=== PATIENT | female | born 1995 | race Caucasian/White ===

== ENCOUNTER 2017-05-11 07:05 | Inpatient (IN) | payer OTHER ==
[~2017-05-11] VITALS: Ht 172.7 cm; Wt 59.0 kg
[2017-05-11] MEDS ORDERED: MORPHINE SULFATE 4 MG/ML DISP.SYRIN. ONE (07:20)
[2017-05-11 07:28] LABS: BASO # 0.1 x10^3/uL (0.0-0.2); BASO % 1 % (0-3); EOS % 1 % (0-3); HEMATOCRIT 42.1 % (36.0-47.0); HEMOGLOBIN 13.9 g/dL (12.0-15.5); LYMPH # 1.1 x10^3/uL (1.0-4.8); LYMPH % 10 % (24-48); MEAN CORPUSCULAR HEMOGLOBIN 31 pg (25-35); MEAN CORPUSCULAR HGB CONC 33 g/dL (31-37); MEAN CORPUSCULAR VOLUME 92 fL (79-100); MONO % 5 % (0-9); NEUT % 85 % (31-73); PLATELET COUNT 195 x10^3/uL (140-400); RED BLOOD COUNT 4.57 x10^6/uL (3.50-5.40); RED CELL DISTRIBUTION WIDTH 13.1 % (11.5-14.5); WHITE BLOOD COUNT 11.1 x10^3/uL (4.0-11.0)
[2017-05-11] MEDS ORDERED: ONDANSETRON PF 4 MG/2 ML VIAL. IV ONE (07:30)
[2017-05-11] MEDS: MORPHINE SULFATE 4 MG/ML DISP.SYRIN. IV/SQ PRN ×4 (07:30→09:34)
[2017-05-11] MEDS ORDERED: IV NORMAL SALINE 1000ML BAG 1,000 ML IV ONE (07:30)
[2017-05-11] MEDS ORDERED: IOHEXOL 300 MG/ML 75 ML VIAL IV ONE (07:30)
[2017-05-11] MEDS ORDERED: CONTRAST GIVEN MC PRN (07:45)
[2017-05-11 07:48] LABS: NEG OBC SER NEG; POS OBC SER POS
[2017-05-11 08:03] LABS: CALCIUM 8.4 mg/dL (8.5-10.1); CREATININE 0.8 mg/dL (0.6-1.0); GFR 90.5; POTASSIUM 3.4 mmol/L (3.5-5.1)
[2017-05-11 08:10] LABS: ALBUMIN 4.1 g/dL (3.4-5.0); ALBUMIN/GLOBULIN RATIO 1.1 (1.0-1.7); TOTAL BILIRUBIN 0.3 mg/dL (0.2-1.0); TOTAL PROTEIN 7.8 g/dL (6.4-8.2)
--- NOTE | 2017-05-11 08:40 | RAD ---
CT scan of the abdomen and pelvis with contrast 05/11/2017 Clinical history: Acute abdominal pain since last night with nausea and vomiting. Technique: After the intravenous administration of 35 cc of Omnipaque 300, contiguous, 5 mm axial sections were obtained through the abdomen and pelvis. One or more of the following individualized dose reduction techniques were utilized for this study: 1. Automated exposure control. 2. Adjustment of the mA and/or kV according to patient size. 3. Use of iterative reconstruction technique. Findings: No previous imaging studies are available for comparison. Images through the lung bases are within normal limits. Images through the the liver demonstrate periportal edema which is a nonspecific finding. It could be seen with hepatitis. A small amount of pericholecystic fluid is seen surrounding the gallbladder which is contracted. Questionable calcified gallstones are seen within the dependent portions of the gallbladder on the coronal reconstructed images. The liver is mildly enlarged measuring 20 cm in length. The spleen, pancreas, adrenal glands and kidneys are within normal limits. The abdominal aorta tapers normally. No free air is seen within the abdomen. There is no evidence of bowel obstruction. The appendix is partially visualized and is within normal limits. Images through the pelvis demonstrate the urinary bladder distended with urine. No adnexal mass is seen. No free fluid is noted. Minimal S shaped curvature of the thoracolumbar spine is noted. Impression: 1. Periportal edema is seen throughout the liver. This is a nonspecific finding. It can be seen in hepatitis. Clinical correlation is recommended. 2. Question cholelithiasis. A small amount of pericholecystic fluid is seen. This is a nonspecific finding. This can be seen with cholecystitis. Clinical correlation is recommended.
--- NOTE | 2017-05-11 10:38 | RAD ---
Ultrasound of the right upper quadrant of the abdomen 05/11/2017 Clinical history: Epigastric pain since this morning with nausea and vomiting. Technique: A real-time ultrasound examination of the right upper quadrant of the abdomen was performed. Multiple images were obtained. Findings: Comparison is made to the patient's CT scan of the abdomen performed earlier today. Findings: The gallbladder is slightly contracted. No gallstones are visualized. The contracted nature of the gallbladder makes evaluation of the gallbladder wall thickness difficult. The pericholecystic fluid is better seen on the patient's CT scan. The liver is normal in size measuring 16.3 cm in length. No focal abnormality of the liver is seen. The pancreas and right kidney are within normal limits. Impression: The gallbladder is contracted. No gallstones are visualized.
--- NOTE | 2017-05-11 11:20 | PHYS DOC ---
Past Medical History Past Medical History: Other Additional Past Medical Histor: SVT Alcohol Use: None Drug Use: None Adult General Chief Complaint Chief Complaint: ABDOMINAL PAIN HPI HPI Patient is a 21 year old female who presents to the ED with severe abdominal pain that began about 2 AM and has been worsening. Patient has never had pain like this before. This is the most severe pain she's ever had. She has had some nausea and vomiting with it and also had "a lot" of diarrhea. Patient is currently having her menstrual period. Patient states she was seen a week ago Friday in an ER in [place] with pelvic pain and had an ultrasound and was diagnosed with a ruptured ovarian cyst but she's been okay all week since that happened. She has been taking pain pills occasionally since then. This pain is "way worse" than that pain was, and also this pain is in her upper abdomen. Patient was fine during the day yesterday. 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 They spent the [facility] and her headed home to [place]. They're passing through the area as they travel. Patient takes control pills. She has a history of SVT. She did not have ablation for that. She has had ovarian cysts. She has not had abdominal surgery. Review of Systems Review of Systems Constitutional: Denies fever or chills [] HENT: Denies nasal congestion or sore throat [] Respiratory: Denies cough or shortness of breath [] Cardiovascular: Denies chest pain GI: As in history of present illness : As in history of present illness Musculoskeletal: Denies back pain or joint pain [] Integument: Denies rash or skin lesions [] Neurologic: Denies headache, focal weakness or sensory changes [] Current Medications Current Medications Current Medications Medications (Trade) Dose Ordered Sig/Sharon Start Time Stop Time Status Last Admin Dose Admin Info (Do NOT chart on this entry -- for MONITORING) 1 each PRN DAILY PRN 05/11/17 07:45 05/13/17 07:44 Iohexol (Omnipaque 300 Mg/ml) 75 ml 1X ONCE 05/11/17 07:30 05/11/17 07:35 DC 05/11/17 07:55 75 ML Morphine Sulfate 2 mg PRN Q2HR PRN 05/11/17 13:00 05/12/17 12:59 Ondansetron HCl (Zofran) 4 mg PRN Q8HRS PRN 05/11/17 13:00 05/12/17 12:59 Sodium Chloride 1,000 ml @ 100 mls/hr Q10H 05/11/17 12:49 05/12/17 12:48 Allergies Allergies Allergies Coded Allergies Type Severity Reaction Last Updated Verified No Known Drug Allergies 05/11/17 No Physical Exam Physical Exam Constitutional: Well developed, well nourished, alert, mentating normally, in acute distress, seems colicky, writhing, can't get comfortable, warm and dry. HENT: Normocephalic, atraumatic, bilateral external ears normal, nose normal. [ ] Eyes: conjunctiva normal, no discharge. [] Neck: Normal range of motion, no stridor. [] Cardiovascular:Heart rate regular rhythm, no murmur [] Lungs & Thorax: Bilateral breath sounds clear to auscultation [] Abdomen: Bowel sounds quiet. Abdomen nondistended. No mass, no pulsatile mass. Lower abdomen is mildly tender to palpation, upper abdomen is moderately tender to palpation. No guarding or rebound. No definitely localized tenderness. Skin: Warm, dry, no erythema, no rash. [] Extremities: No tenderness, no cyanosis, no clubbing, ROM intact, no edema. [] Neurologic: Alert and oriented X 3, normal motor function, normal sensory function, no focal deficits noted. [] Current Patient Data Vital Signs Vital Signs Date Time Temp Pulse Resp B/P (MAP) Pulse Ox O2 Delivery O2 Flow Rate FiO2 05/11/17 11:41 52 24 103/58 (73) 97 Room Air 05/11/17 07:10 97.8 97.8 Lab Values Laboratory Tests Test 05/11/17 07:20 White Blood Count 11.1 x10^3/uL (4.0-11.0) H Red Blood Count 4.57 x10^6/uL (3.50-5.40) Hemoglobin 13.9 g/dL (12.0-15.5) Hematocrit 42.1 % (36.0-47.0) Mean Corpuscular Volume 92 fL (79-100) Mean Corpuscular Hemoglobin 31 pg (25-35) Mean Corpuscular Hemoglobin Concent 33 g/dL (31-37) Red Cell Distribution Width 13.1 % (11.5-14.5) Platelet Count 195 x10^3/uL (140-400) Neutrophils (%) (Auto) 85 % (31-73) H Lymphocytes (%) (Auto) 10 % (24-48) L Monocytes (%) (Auto) 5 % (0-9) Eosinophils (%) (Auto) 1 % (0-3) Basophils (%) (Auto) 1 % (0-3) Neutrophils # (Auto) 9.3 x10^3uL (1.8-7.7) H Lymphocytes # (Auto) 1.1 x10^3/uL (1.0-4.8) Monocytes # (Auto) 0.5 x10^3/uL (0.0-1.1) Eosinophils # (Auto) 0.1 x10^3/uL (0.0-0.7) Basophils # (Auto) 0.1 x10^3/uL (0.0-0.2) Sodium Level 139 mmol/L (136-145) Potassium Level 3.4 mmol/L (3.5-5.1) L Chloride Level 105 mmol/L (98-107) Carbon Dioxide Level 25 mmol/L (21-32) Anion Gap 9 (6-14) Blood Urea Nitrogen 10 mg/dL (7-20) Creatinine 0.8 mg/dL (0.6-1.0) Estimated GFR (Cockcroft-Gault) 90.5 BUN/Creatinine Ratio 13 (6-20) Glucose Level 114 mg/dL (70-99) H Calcium Level 8.4 mg/dL (8.5-10.1) L Total Bilirubin 0.3 mg/dL (0.2-1.0) Aspartate Amino Transferase (AST) 26 U/L (15-37) Alanine Aminotransferase (ALT) 20 U/L (14-59) Alkaline Phosphatase 55 U/L (46-116) Total Protein 7.8 g/dL (6.4-8.2) Albumin 4.1 g/dL (3.4-5.0) Albumin/Globulin Ratio 1.1 (1.0-1.7) Lipase 100 U/L (73-393) Serum Test, Qualitative Negative (NEG) Laboratory Tests 05/11/17 07:20 Laboratory Tests 05/11/17 07:20 EKG EKG [] Radiology/Procedures Radiology/Procedures CT scan of the abdomen and pelvis with IV contrast read by the radiologist.. Periportal edema which is a nonspecific finding. Question pericholecystic fluid and questionable gallstones. I discussed the CT scan with Dr. Pleitez. There is no evidence of free air, no evidence of vascular emergency including negative portal or SMV thrombosis, negative volvulus. Right upper quadrant ultrasound read by the radiologist. Essentially normal ultrasound. No gallstones. No significant abnormality of the gallbladder although it was noted to be contracted. Liver is normal in size on the ultrasound. No focal abnormality of the liver is seen on the ultrasound. [] Course & Med Decision Making Course & Med Decision Making Pertinent Labs and Imaging studies reviewed. (See chart for details) 21-year-old healthy female who is traveling from [place] to [place] and passing through the area presents with acute onset of severe abdominal pain at 2 AM that became increasingly more severe. I discussed with the patient that we will treat her pain and do some diagnostic testing, she is agreeable to that plan. Patient was given IV morphine and Zofran and did get eventual relief of her abdominal pain. Labs unremarkable, unrevealing for cause of pain, test negative. Liver enzymes, alkaline phosphatase, bilirubin are normal. I discussed the case with Dr. Pleitez, radiologist. We discussed the patient's presentation and my concerns about the fact that her abdominal pain was relatively acute and severe. He reviewed her films again. He does not see any evidence of thromboembolic or other vascular problem, specifically does not see portal for SMV thrombosis or volvulus, he did note on CT scan the presence of nonspecific periportal edema, differential diagnosis for this does not seem to apply to this patient and this would not be the cause of acute severe pain from my understanding. There was an initial question of biliary colic/gallstones on CT scan but ultrasound did not demonstrate gallstones. He believes that might have been an artifact on the CT scan. I revisited the patient who states she is feeling a lot better after morphine. She remains alert. She is no longer vomiting. She does appear much more comfortable. I discussed the results of her testing. Although we have not identified the cause of her pain, we have ruled out many serious causes and are not finding anything to suggest an imminently surgical or emergency abnormality at this time. We discussed disposition. I offered the patient admission for observation. I told her we could certainly keep her in the hospital for IV fluids and keep an eye on her, if the situation were to change she could have reexam, repeat labs, etc. as indicated. The patient plans to drive back home to [place] today, she is not herself doing the driving. She did rather go ahead and leave and get back home and I do believe that is safe since she has had a thorough evaluation here in the ED. We agreed that she will try a by mouth challenge and a trial of ambulation prior to making a final decision. Patient ate some crackers and had a trial of ambulation and stated that her pain was better and does wish to be discharged. The patient was requesting an additional shot of morphine prior to discharge but I am very reluctant to do that. I told her if she is still having significant pain, I don't want to discharge her to drive from here to [place]. If she's not having much pain, she doesn't need any more morphine. I feel like she is stable for discharge based on all the negative tests but I don't feel like I should discharge her with pain requiring IV opiates. We discussed this. I had gotten the patient's discharge paperwork ready when ED RN told me that the patient's mom was on the phone. I returned to the patient's room and talked to the patient's mom at length on the patient's phone. During our conversation, the patient began to curl her legs up and cry again, stating her pain was coming back. The patient's mom and the patient both are asking for a dose of morphine prior to discharge "to get her down the road a few hours" and I am refusing to do that. If she is still having abdominal pain significant enough to require IV opiates, she does not need to be discharged from the hospital to drive from here to [place]. I tried to make my reasoning for that clear. The patient will be admitted for observation and further evaluation as she is requiring IV opiates for her abdominal pain of undetermined etiology. I discussed the case with Dr. Carter, hospitalist, who will admit the patient. I wrote bridge orders. [] Dragon Disclaimer Dragon Disclaimer This electronic medical record was generated, in whole or in part, using a voice recognition dictation system. Departure Departure Impression: Primary Impression: Abdominal pain of unknown etiology Disposition: ADMITTED INPATIENT Admitting Physician: Gianni Marmolejo Condition: STABLE Referrals: NO PCP (PCP) Additional Instructions: As we discussed, lab tests, ultrasound, CT scan did not show the cause of your pain today. What that means is that we did not find the cause and that we evaluated for many serious causes and did not find them. You may need more testing. If the pain returns see your doctor right away for further evaluation. TON HATCH MD May 11, 2017 11:20
[2017-05-11] MEDS: IV NORMAL SALINE 1000ML BAG 1,000 ML IV SCH ×2 (12:49→17:03)
[2017-05-11] MEDS ORDERED: ONDANSETRON PF 4 MG/2 ML VIAL. IV PRN (13:00)
[2017-05-11] MEDS ORDERED: MORPHINE SULFATE 2 MG/ML DISP.SYRIN. IV PRN (13:00)
[2017-05-11 14:56] VITALS: BP 110/69
[2017-05-11] MEDS ORDERED: oxyCODONE/APAP 5/325 1 TAB TABLET PO PRN (16:00)
--- NOTE | 2017-05-11 16:24 | PDOC1 ---
History and Physical Date of Admission Date of Admission DATE: 05/11/17 TIME: 16:18 Identification/Chief Complaint Chief Complaint abd pain Problems: Source Source: Caregiver, Chart review, Patient History of Present Illness History of Present Illness 21 y.o female, NON obese, visiting from [facility], she spent the whole summer in [place] and is now driving back to [place], an attack of abd pain, epigastric and maybe radiated to the RUQ area, needed to stop driving and come here, SOme nausea maybe emesis? no fevers, no diarrhea reported to me,CT scan showed fatty liver (denies heavy etoh) and pericholic cystic fluid, but no GB stones, ff up US failed to show any GB stones, WBC 11 , no UA yet, Pt was about to be sent home, when after eating crackers and some liquid diet felt the pain again, curled up, She was then admitted K 3.4, prefers to lay down as that is the most comfortable position, Morphine helps but not permanently NO hx hepatitis, LFTs normal. She could not say ifpain is precipitated by food COntracted GB on imaging Past Medical History Cardiovascular: No pertinent hx Pulmonary: No pertinent hx GI: No pertinent hx Heme/Onc: No pertinent hx Hepatobiliary: No pertinent hx Psych: No pertinent hx Rheumatologic: No pertinent hx Infectious disease: No pertinent hx ENT: No pertinent hx Renal/: No pertinent hx Endocrine: No pertinent hx Dermatology: No pertinent hx Past Surgical History Past Surgical History: No pertinent history Family History Family History: Hypertension Social History Smoke: No ALCOHOL: none Drugs: None Current Problem List Problem List Problems Medical Problems: (1) Abdominal pain of unknown etiology Status: Acute Problems: Current Medications Current Medications Current Medications Morphine Sulfate 4 mg PRN Q15MIN PRN IV/SQ PAIN GREATER THAN 3/10 Last administered on 05/11/17 09:34; Start 05/11/17 at 07:30; Stop 05/11/17 at 15:49 ; Status DC Ondansetron HCl (Zofran) 4 mg 1X ONCE IV Last administered on 05/11/17 07:31 ; Start 05/11/17 at 07:30; Stop 05/11/17 at 07:31; Status DC Morphine Sulfate 4 mg STK-MED ONCE .ROUTE ; Start 05/11/17 at 07:20; Stop at 07:21; Status DC Sodium Chloride 1,000 ml @ 1,000 mls/hr 1X ONCE IV Last administered on 07:32; Start 05/11/17 at 07:30; Stop 05/11/17 at 08:29; Status DC Iohexol (Omnipaque 300 Mg/ml) 75 ml 1X ONCE IV Last administered on 05/11/17 07:55; Start 05/11/17 at 07:30; Stop 05/11/17 at 07:35; Status DC Info (Do NOT chart on this entry -- for MONITORING) 1 each PRN DAILY PRN MC SEE COMMENTS; Start 05/11/17 at 07:45; Stop 05/13/17 at 07:44 Ondansetron HCl (Zofran) 4 mg PRN Q8HRS PRN IV NAUSEA/VOMITING; Start 05/11/17 at 13:00; Stop 05/11/17 at 15:49; Status DC Morphine Sulfate 2 mg PRN Q2HR PRN IV PAIN; Start 05/11/17 at 13:00; Stop 05/12 at 12:59 Sodium Chloride 1,000 ml @ 100 mls/hr Q10H IV Last administered on 05/11/17 12:49; Start 05/11/17 at 12:49; Stop 05/12/17 at 12:48 Ondansetron HCl (Zofran) 4 mg PRN Q6HRS PRN IV NAUSEA/VOMITING; Start 05/11/17 at 15:48 Oxycodone/ Acetaminophen (Percocet 5/325) 1 tab PRN Q4HRS PRN PO PAIN; Start at 16:00 Potassium Chloride 100 ml @ 100 mls/hr Q1H IV ; Start 05/11/17 at 17:00; Stop 05/11/17 at 18:59 Allergies Allergies: Coded Allergies: No Known Drug Allergies (Unverified , 05/11/17) ROS Review of System s per HPI all eles, is neg Physical Exam General: Alert, Oriented X3, Cooperative, No acute distress HEENT: Atraumatic, PERRLA, EOMI, Mucous membr. moist/pink Lungs: Clear to auscultation, Normal air movement Heart: S1S2, RRR, no thrills, no rubs, no gallops Cardiovascular: S1, S2 Breasts: Normal, Rt breast nml w/o mass, Lt breast nml w/o mass, Nipples normal Abdomen: Soft, Other (tenderness mostly in epigatsric area, no rebound, no guarding) Rectal Exam: not examined PELVIC: Nml ext genitalia Extremities: No clubbing Skin: No rashes, No breakdown, No significant lesion Neuro: Normal gait, Normal speech, Strength at 5/5 X4 ext, Normal tone, Sensation intact, Cranial nerves 3-12 NL, Reflexes 2+ Psych/Mental Status: Mental status NL, Mood NL Vitals Vitals Vital Signs Date Time Temp Pulse Resp B/P (MAP) Pulse Ox O2 Delivery O2 Flow Rate FiO2 05/11/17 14:56 98.1 59 18 110/69 (83) 97 Room Air 98.1 Labs Labs Laboratory Tests Test 05/11/17 07:20 White Blood Count 11.1 x10^3/uL (4.0-11.0) Red Blood Count 4.57 x10^6/uL (3.50-5.40) Hemoglobin 13.9 g/dL (12.0-15.5) Hematocrit 42.1 % (36.0-47.0) Mean Corpuscular Volume 92 fL (79-100) Mean Corpuscular Hemoglobin 31 pg (25-35) Mean Corpuscular Hemoglobin Concent 33 g/dL (31-37) Red Cell Distribution Width 13.1 % (11.5-14.5) Platelet Count 195 x10^3/uL (140-400) Neutrophils (%) (Auto) 85 % (31-73) Lymphocytes (%) (Auto) 10 % (24-48) Monocytes (%) (Auto) 5 % (0-9) Eosinophils (%) (Auto) 1 % (0-3) Basophils (%) (Auto) 1 % (0-3) Neutrophils # (Auto) 9.3 x10^3uL (1.8-7.7) Lymphocytes # (Auto) 1.1 x10^3/uL (1.0-4.8) Monocytes # (Auto) 0.5 x10^3/uL (0.0-1.1) Eosinophils # (Auto) 0.1 x10^3/uL (0.0-0.7) Basophils # (Auto) 0.1 x10^3/uL (0.0-0.2) Sodium Level 139 mmol/L (136-145) Potassium Level 3.4 mmol/L (3.5-5.1) Chloride Level 105 mmol/L (98-107) Carbon Dioxide Level 25 mmol/L (21-32) Anion Gap 9 (6-14) Blood Urea Nitrogen 10 mg/dL (7-20) Creatinine 0.8 mg/dL (0.6-1.0) Estimated GFR (Cockcroft-Gault) 90.5 BUN/Creatinine Ratio 13 (6-20) Glucose Level 114 mg/dL (70-99) Calcium Level 8.4 mg/dL (8.5-10.1) Total Bilirubin 0.3 mg/dL (0.2-1.0) Aspartate Amino Transf (AST/SGOT) 26 U/L (15-37) Alanine Aminotransferase (ALT/SGPT) 20 U/L (14-59) Alkaline Phosphatase 55 U/L (46-116) Total Protein 7.8 g/dL (6.4-8.2) Albumin 4.1 g/dL (3.4-5.0) Albumin/Globulin Ratio 1.1 (1.0-1.7) Lipase 100 U/L (73-393) Serum Test, Qualitative Negative (NEG) Laboratory Tests Test 05/11/17 07:20 White Blood Count 11.1 x10^3/uL (4.0-11.0) Red Blood Count 4.57 x10^6/uL (3.50-5.40) Hemoglobin 13.9 g/dL (12.0-15.5) Hematocrit 42.1 % (36.0-47.0) Mean Corpuscular Volume 92 fL (79-100) Mean Corpuscular Hemoglobin 31 pg (25-35) Mean Corpuscular Hemoglobin Concent 33 g/dL (31-37) Red Cell Distribution Width 13.1 % (11.5-14.5) Platelet Count 195 x10^3/uL (140-400) Neutrophils (%) (Auto) 85 % (31-73) Lymphocytes (%) (Auto) 10 % (24-48) Monocytes (%) (Auto) 5 % (0-9) Eosinophils (%) (Auto) 1 % (0-3) Basophils (%) (Auto) 1 % (0-3) Neutrophils # (Auto) 9.3 x10^3uL (1.8-7.7) Lymphocytes # (Auto) 1.1 x10^3/uL (1.0-4.8) Monocytes # (Auto) 0.5 x10^3/uL (0.0-1.1) Eosinophils # (Auto) 0.1 x10^3/uL (0.0-0.7) Basophils # (Auto) 0.1 x10^3/uL (0.0-0.2) Sodium Level 139 mmol/L (136-145) Potassium Level 3.4 mmol/L (3.5-5.1) Chloride Level 105 mmol/L (98-107) Carbon Dioxide Level 25 mmol/L (21-32) Anion Gap 9 (6-14) Blood Urea Nitrogen 10 mg/dL (7-20) Creatinine 0.8 mg/dL (0.6-1.0) Estimated GFR (Cockcroft-Gault) 90.5 BUN/Creatinine Ratio 13 (6-20) Glucose Level 114 mg/dL (70-99) Calcium Level 8.4 mg/dL (8.5-10.1) Total Bilirubin 0.3 mg/dL (0.2-1.0) Aspartate Amino Transf (AST/SGOT) 26 U/L (15-37) Alanine Aminotransferase (ALT/SGPT) 20 U/L (14-59) Alkaline Phosphatase 55 U/L (46-116) Total Protein 7.8 g/dL (6.4-8.2) Albumin 4.1 g/dL (3.4-5.0) Albumin/Globulin Ratio 1.1 (1.0-1.7) Lipase 100 U/L (73-393) Serum Test, Qualitative Negative (NEG) VTE Prophylaxis Ordered VTE Prophylaxis Devices: Yes VTE Pharmacological Prophylaxi: Yes Assessment/Plan Assessment/Plan 1. ABd pain, epigastric, sometimes involving RUQ 2. NAusea, emesis 3. Hypokalemia' 4. Leukocytosis PLAN: Admit IVF LIquid diet for now, NPO for GS eval lion AM Tender mostly omn epig area, contacted GB and some pericholic cystic fluid but no stones MOre than eager to have GB taken out if recommended by GS Check UA replace K Recheck labs lion Dw her and her apprentice photographer at bedside KIT NAM MD May 11, 2017 16:24
[2017-05-11 17:02] LABS: BILIRUBIN,URINE NEGATIVE (NEG); GLUCOSE,URINE NEGATIVE (NEG); NITRITE,URINE NEGATIVE (NEG); PROTEIN,URINE NEGATIVE (NEG-TRACE); UROBILINOGEN,URINE 0.2 mg/dL (0.2 mg/dL)
[2017-05-11] MEDS: POTASSIUM CHLORIDE 10MEQ 100 ML IV SCH ×2 (17:03→19:47)
[2017-05-11] MEDS ORDERED: OXYC5CAP PO (17:04)
[2017-05-11 17:10] LABS: BACTERIA,URINE FEW /HPF (0-FEW); RBC,URINE 0 /HPF (0-2); SQUAMOUS EPITHELIAL CELL,UR FEW /LPF
[2017-05-11 17:51] LABS: ALBUMIN 4.1 g/dL (3.4-5.0); DIRECT BILIRUBIN 0.1 mg/dL (0.0-0.2); TOTAL BILIRUBIN 0.3 mg/dL (0.2-1.0); TOTAL PROTEIN 7.5 g/dL (6.4-8.2)
[2017-05-11 19:19] VITALS: BP 107/64
[2017-05-11 23:25] VITALS: BP 99/68
[2017-05-12] VITALS (8 sets, daily range): BP systolic 95–108; BP diastolic 52–70
--- NOTE | 2017-05-12 00:47 | ACF ---
Admission Forms Criteria ABDOMINAL PAIN Clinical Indications for Admission to Inpatient Care ( [place] [place]/check or initial the applicable condition/criteria): Admission is indicated for ANY ONE of the following (1)(2)(3)(4)(5)(6): [ ]I. Surgery needed that cannot be performed on ambulatory basis [ ]II. Peritoneal signs present (eg, rebound tenderness, rigidity) [ ]III. Evaluation requires patient to not eat or drink for extended period ( eg, more than 24 hours). [X ]IV. Inpatient admission required[B] rather than observation care (see Abdominal Pain: Observation Care guideline as appropriate) because of ANY ONE of the following(7)(8)(9): [ ] a) Hemodynamic instability [ ]b) Severe pain requiring acute inpatient management [X ]c) Identification of etiology or finding that requires inpatient care (eg, aortic dissection, free air,bowel ischemia)(10) [ ]d) Absent bowel sounds with complete ileus (11) [ ]e) Signs of intestinal obstruction[C] [ ]f) Suspected toxic megacolon [ ]g) Severe electrolyte abnormalities requiring inpatient care [ ]h) High fever or infection requiring inpatient admission as indicated by ANY ONE of the following (12)(13): [ ]i) Appropriate outpatient or observation care antimicrobial treatment unavailable, not effective, or not feasible [ ]ii) Documented bacteremia [ ]iii) Temperature greater than 104.9 degrees F (40.5 degrees C) (oral) [ ]iv) Temperature greater than 103.1 degrees F (39.5 degrees C) ( oral) or less than 96.8 degrees F (36 degrees C) (rectal) that does not respond to all emergency treatment measures [ ]i) IV fluid required rather than oral rehydration to replace significant ongoing (eg, for greater than 24 hours) losses (greater than 3 L/m2 per day)(14)(15) [ ]j) Percutaneous or open drainage (eg, abscess, biliary tract) procedures [ ]k) Parenteral nutrition regimen that must be implemented on inpatient basis [ ]l) Other condition, treatment, or monitoring requiring inpatient admission Extended stay beyond goal length of stay may be needed for (1)(3)(4)(10)(16): [ ]a) Surgery (e.g., colectomy, revascularization procedure) [ ]b) Persistent abdominal pain with suspected intra-abdominal process [ ]c) Diagnosed condition requiring continued stay (e.g., pancreatitis, complicated diverticulitis) The original [facility] content created by [facility] has been revised. The portions of the content which have been revised are identified through the use of italic text, and [facility] has neither reviewed nor approved the modified material.All other unmodified content is copyright [facility]. Please see references footnoted in the original [facility] edition 2015 Admission Criteria Met?: Yes RAMO GUZMÁN May 12, 2017 00:47
[2017-05-12] MEDS ORDERED: IV RINGERS,LACTATED 1000ML 1,000 ML IV SCH (07:45)
[2017-05-12] MEDS ORDERED: PROCHLORPERAZINE 10 MG/2 ML VIAL. IV PRN (07:45)
[2017-05-12] MEDS ORDERED: MORPHINE SULFATE 2 MG/ML DISP.SYRIN. IV PRN (07:45)
[2017-05-12] MEDS ORDERED: ONDANSETRON PF 4 MG/2 ML VIAL. IV PRN (07:45)
[2017-05-12] MEDS ORDERED: LIDOCAINE 1% 1 ML SYRINGE. ID PRN (07:45)
[2017-05-12] MEDS ORDERED: fentaNYL PF VIAL 100 MCG/2 ML VIAL IV PRN ×3 (07:45→15:45)
[2017-05-12] MEDS ORDERED: HYDROmorphone 2 MG/ML VIAL IV PRN (07:45)
[2017-05-12] MEDS ORDERED: HEPARIN 1,000 UNIT in IV NORMAL SALINE 1,000 ML for SURG PERIOP IRR ONE (08:00)
[2017-05-12] MEDS ORDERED: MORPHINE SULFATE 4 MG/ML DISP.SYRIN. IV PRN (08:15)
[2017-05-12] MEDS: ONDANSETRON PF 4 MG/2 ML VIAL. IV PRN ×2 (08:16→20:45)
[2017-05-12 08:48] LABS: BASO % 1 % (0-3); EOS % 2 % (0-3); HEMATOCRIT 39.8 % (36.0-47.0); HEMOGLOBIN 13.2 g/dL (12.0-15.5); LYMPH # 0.6 x10^3/uL (1.0-4.8); LYMPH % 21 % (24-48); MEAN CORPUSCULAR HEMOGLOBIN 31 pg (25-35); MEAN CORPUSCULAR HGB CONC 33 g/dL (31-37); MEAN CORPUSCULAR VOLUME 92 fL (79-100); MONO % 10 % (0-9); NEUT % 66 % (31-73); PLATELET COUNT 162 x10^3/uL (140-400); RED BLOOD COUNT 4.33 x10^6/uL (3.50-5.40)
[2017-05-12] MEDS: IV NORMAL SALINE 1000ML BAG 1,000 ML IV SCH (08:49)
[2017-05-12 09:16] LABS: ALBUMIN 3.6 g/dL (3.4-5.0); CALCIUM 7.9 mg/dL (8.5-10.1); CREATININE 0.8 mg/dL (0.6-1.0); GFR 90.5; POTASSIUM 3.5 mmol/L (3.5-5.1); TOTAL BILIRUBIN 0.7 mg/dL (0.2-1.0); TOTAL PROTEIN 7.2 g/dL (6.4-8.2)
--- NOTE | 2017-05-12 09:45 | PDOC2 ---
GI CONSULT Reason For Consult: Hepatitis HPI: HPI: 21 y/o female who lives in [place] and who spent the summer working at the [employer] in [place] on her way home to start school on Friday. Stopped in [place] on Friday night, had a hard time sleeping due to feeling ill w/ acute onset upper abd pain , n/v, and diarrhea. No sick contacts, no consumption of unusual food (has eaten in cafeteria and [employer] sandwiches the entire summer), no bug/ticks bites. Tried OTC pain medication and Tums, also tried oxycodone left over from recent ER visit in [place] when she was diagnosed w/ ruptured ovarian cyst (RLQ pain , much different from current issues). Didn't feel well enough to continue journey home, came to ER and was admitted. Labs initially unremarkable except WBC 11.1. LFTs were normal, now AST [address] A/P showed periportal edema and possible cholelithiasis w/ small amount pericholecystic fluid. RUQ US showed normal-sized liver and contracted gallbladder w/o gallstones. Denies GERD, routine NSAID use, and chronic diarrhea/constipation. Last stool and emesis yesterday morning. Did note some flecks of red blood in emesis and stool at one point. No previous endoscopy. Mom here from [place]. PMH: PMH: SVT, ovarian cysts, costochondritis FH: Family History: Cancer (father - bone marrow cancer), DM, Other (Parkinson's) Social History: Smoke: No ALCOHOL: rare Drugs: None ROS: GEN: Denies fevers, chills, sweats HEENT: Denies blurred vision, sore throat CV: Denies chest pain RESP: Denies shortness of air, cough GI: Per HPI : Denies hematuria, dysuria ENDO: Denies weight changes NEURO: Denies confusion, dizziness MSK: Denies weakness, joint pain/swelling SKIN: Denies jaundice, pruritus Vitals: Vitals: Vital Signs Date Time Temp Pulse Resp B/P (MAP) Pulse Ox O2 Delivery O2 Flow Rate FiO2 05/12/17 08:17 Room Air 05/12/17 07:00 98.1 55 16 95/60 (72) 98 98.1 Labs: Labs: Laboratory Tests Test 05/11/17 16:45 05/12/17 08:35 05/12/17 08:40 Urine Collection Type Unknown Urine Color Yellow Urine Clarity Clear Urine pH 6.0 Urine Specific [place] 1.025 Urine Protein Negative mg/dL (NEG-TRACE) Urine Glucose (UA) Negative mg/dL (NEG) Urine Ketones (Stick) Negative mg/dL (NEG) Urine Blood Negative (NEG) Urine Nitrite Negative (NEG) Urine Bilirubin Negative (NEG) Urine Urobilinogen Dipstick 0.2 mg/dL (0.2 mg/dL) Urine Leukocyte Esterase Negative (NEG) Urine RBC 0 /HPF (0-2) Urine WBC 1-4 /HPF (0-4) Urine Squamous Epithelial Cells Few /LPF Urine Bacteria Few /HPF (0-FEW) Urine Mucus Slight /LPF White Blood Count 3.0 x10^3/uL (4.0-11.0) Red Blood Count 4.33 x10^6/uL (3.50-5.40) Hemoglobin 13.2 g/dL (12.0-15.5) Hematocrit 39.8 % (36.0-47.0) Mean Corpuscular Volume 92 fL (79-100) Mean Corpuscular Hemoglobin 31 pg (25-35) Mean Corpuscular Hemoglobin Concent 33 g/dL (31-37) Red Cell Distribution Width 13.0 % (11.5-14.5) Platelet Count 162 x10^3/uL (140-400) Neutrophils (%) (Auto) 66 % (31-73) Lymphocytes (%) (Auto) 21 % (24-48) Monocytes (%) (Auto) 10 % (0-9) Eosinophils (%) (Auto) 2 % (0-3) Basophils (%) (Auto) 1 % (0-3) Neutrophils # (Auto) 2.0 x10^3uL (1.8-7.7) Lymphocytes # (Auto) 0.6 x10^3/uL (1.0-4.8) Monocytes # (Auto) 0.3 x10^3/uL (0.0-1.1) Eosinophils # (Auto) 0.1 x10^3/uL (0.0-0.7) Basophils # (Auto) 0.0 x10^3/uL (0.0-0.2) Sodium Level 140 mmol/L (136-145) Potassium Level 3.5 mmol/L (3.5-5.1) Chloride Level 105 mmol/L (98-107) Carbon Dioxide Level 27 mmol/L (21-32) Anion Gap 8 (6-14) Blood Urea Nitrogen 6 mg/dL (7-20) Creatinine 0.8 mg/dL (0.6-1.0) Estimated GFR (Cockcroft-Gault) 90.5 BUN/Creatinine Ratio 8 (6-20) Glucose Level 85 mg/dL (70-99) Calcium Level 7.9 mg/dL (8.5-10.1) Total Bilirubin 0.7 mg/dL (0.2-1.0) Aspartate Amino Transf (AST/SGOT) 157 U/L (15-37) Alanine Aminotransferase (ALT/SGPT) 243 U/L (14-59) Alkaline Phosphatase 79 U/L (46-116) Total Protein 7.2 g/dL (6.4-8.2) Albumin 3.6 g/dL (3.4-5.0) Albumin/Globulin Ratio 1.0 (1.0-1.7) Allergies: Coded Allergies: No Known Drug Allergies (Unverified , 05/11/17) Medications: Current Medications Medications (Trade) Dose Ordered Sig/Sharon Route PRN Reason Start Time Stop Time Status Last Admin Dose Admin Morphine Sulfate 2 mg PRN Q2HR PRN IV PAIN 05/11/17 13:00 05/12/17 08:12 DC 05/11/17 17:15 Sodium Chloride 1,000 ml @ 100 mls/hr Q10H IV 05/11/17 12:49 05/12/17 12:48 05/11/17 17:03 Ondansetron HCl (Zofran) 4 mg PRN Q6HRS PRN IV NAUSEA/VOMITING 05/11/17 15:48 05/12/17 08:16 Potassium Chloride 100 ml @ 100 mls/hr Q1H IV 05/11/17 17:00 05/11/17 18:59 DC 05/11/17 19:47 Morphine Sulfate 2 mg PRN Q2HR PRN IV PAIN 05/12/17 08:15 05/13/17 08:14 05/12/17 08:17 Imaging: Imaging: CT A/P Impression: 1. Periportal edema is seen throughout the liver. This is a nonspecific finding. It can be seen in hepatitis. Clinical correlation is recommended. 2. Question cholelithiasis. A small amount of pericholecystic fluid is seen. This is a nonspecific finding. This can be seen with cholecystitis. Clinical correlation is recommended. RUQ US Findings: The gallbladder is slightly contracted. No gallstones are visualized. The contracted nature of the gallbladder makes evaluation of the gallbladder wall thickness difficult. The pericholecystic fluid is better seen on the patient's CT scan. The liver is normal in size measuring 16.3 cm in length. No focal abnormality of the liver is seen. The pancreas and right kidney are within normal limits. Impression: The gallbladder is contracted. No gallstones are visualized. PE: GEN: NAD HEENT: Atraumatic, PERRL LUNGS: CTAB HEART: RRR ABD: BS+, diffusely uncomfortable, most significant in upper abd/epigastric EXTREMITY: No edema SKIN: No rashes, no jaundice NEURO/PSYCH: A & O 3 A/P: A/P: Upper abd pain, n/v, diarrhea -recently seen in another ER for RLQ pain, diagnosed w/ ruptured ovarian cyst; these symptoms are different -vomiting and diarrhea have stopped, did note michelle of red blood at one point ( normal Hgb and BUN) Abnormal CT A/P -periportal edema, small amount pericholecystic fluid Transaminitis -- Still uncomfortable despite pain medication. Seen w/ Dr. Sullivan - not clearly related to gallbladder, holding on surgery for now. D/w Dr. Madison - check acute Hepatitis panel and tox screen now. He will see this afternoon. Will start IV H2 justyn. RAHUL KING May 12, 2017 09:45
[2017-05-12 10:02] LABS: BARBITURATES NEG (NEG); BENZODIAZEPINES NEG (NEG); CANNABINOIDS NEG (NEG); COCAINE NEG (NEG); METHADONE NEG (NEG); OPIATES POS (NEG); PHENCYCLIDINE NEG (NEG)
--- NOTE | 2017-05-12 10:04 | PDOC2 ---
CONSULT Date of Consult Date of Consult DATE: 05/12/17 TIME: 09:51 Reason for Consult Reason for Consult: Abd pain Referring Physician Referring Physician: Emma Identification/Chief Complaint Chief Complaint Epigastric abd pain Problems: Source Source: Patient (and pt's mother) History of Present Illness Reason for Visit: 21 yo F with severe abd pain 05/10 while traveling back home to [place] after working in [place] over the summer. N/V/D with some concern for blood in stool. No tick exposure. No sick contacts, although some people noted around her to have food poisoning. No unusual foods. Recently diagnosed with ruptured ovarian cyst, but none seen on current imaging. Supportive mother present at bedside. She denies previous episodes. Past Medical History Cardiovascular: Other (hx SVT, 2 episodes per year. Previously on meds, but not currently. No ablation) Pulmonary: No pertinent hx, Other (diagnosed previously with costochrondritis) GI: No pertinent hx Heme/Onc: No pertinent hx Hepatobiliary: No pertinent hx Psych: No pertinent hx Rheumatologic: No pertinent hx Infectious disease: No pertinent hx ENT: No pertinent hx Renal/: No pertinent hx, Other (recent ovarian cyst diagnosis) Endocrine: No pertinent hx Dermatology: No pertinent hx Past Surgical History Past Surgical History: No pertinent history Family History Family History: Hypertension, Other (blood cancer in father) Social History No ALCOHOL: rare Drugs: None Current Problem List Problem List Problems Medical Problems: (1) Abdominal pain of unknown etiology Status: Acute Current Medications Current Medications Current Medications Morphine Sulfate 4 mg PRN Q15MIN PRN IV/SQ PAIN GREATER THAN 3/10 Last administered on 05/11/17 09:34; Start 05/11/17 at 07:30; Stop 05/11/17 at 15:49 ; Status DC Ondansetron HCl (Zofran) 4 mg 1X ONCE IV Last administered on 05/11/17 07:31 ; Start 05/11/17 at 07:30; Stop 05/11/17 at 07:31; Status DC Morphine Sulfate 4 mg STK-MED ONCE .ROUTE ; Start 05/11/17 at 07:20; Stop at 07:21; Status DC Sodium Chloride 1,000 ml @ 1,000 mls/hr 1X ONCE IV Last administered on 07:32; Start 05/11/17 at 07:30; Stop 05/11/17 at 08:29; Status DC Iohexol (Omnipaque 300 Mg/ml) 75 ml 1X ONCE IV Last administered on 05/11/17 07:55; Start 05/11/17 at 07:30; Stop 05/11/17 at 07:35; Status DC Info (Do NOT chart on this entry -- for MONITORING) 1 each PRN DAILY PRN MC SEE COMMENTS; Start 05/11/17 at 07:45; Stop 05/13/17 at 07:44 Ondansetron HCl (Zofran) 4 mg PRN Q8HRS PRN IV NAUSEA/VOMITING; Start 05/11/17 at 13:00; Stop 05/11/17 at 15:49; Status DC Morphine Sulfate 2 mg PRN Q2HR PRN IV PAIN Last administered on 05/11/17 17:15 ; Start 05/11/17 at 13:00; Stop 05/12/17 at 08:12; Status DC Sodium Chloride 1,000 ml @ 100 mls/hr Q10H IV Last administered on 05/11/17 17:03; Start 05/11/17 at 12:49; Stop 05/12/17 at 12:48 Ondansetron HCl (Zofran) 4 mg PRN Q6HRS PRN IV NAUSEA/VOMITING Last administered on 05/12/17 08:16; Start 05/11/17 at 15:48 Oxycodone/ Acetaminophen (Percocet 5/325) 1 tab PRN Q4HRS PRN PO PAIN; Start at 16:00 Potassium Chloride 100 ml @ 100 mls/hr Q1H IV Last administered on 05/11/17 19:47; Start 05/11/17 at 17:00; Stop 05/11/17 at 18:59; Status DC Ondansetron HCl (Zofran) 4 mg PRN Q6HRS PRN IV NAUSEA/VOMITING; Start 05/12/17 at 07:45; Stop 05/13/17 at 07:44 Fentanyl Citrate (Fentanyl 2ml Vial) 25 mcg PRN Q5MIN PRN IV MILD PAIN; Start 05/12/17 at 07:45; Stop 05/13/17 at 07:44 Fentanyl Citrate (Fentanyl 2ml Vial) 50 mcg PRN Q5MIN PRN IV MODERATE PAIN; Start 05/12/17 at 07:45; Stop 05/13/17 at 07:44 Morphine Sulfate 1 mg PRN Q10MIN PRN IV SEVERE PAIN; Start 05/12/17 at 07:45; Stop 05/13/17 at 07:44 Ringer's Solution 1,000 ml @ 30 mls/hr Q24H IV ; Start 05/12/17 at 07:45; Stop 05/12/17 at 19:44 Lidocaine HCl 2 ml PRN 1X PRN ID PRIOR TO IV START; Start 05/12/17 at 07:45; Stop 05/13/17 at 07:44 Hydromorphone HCl (Dilaudid) 0.5 mg PRN Q10MIN PRN IV SEV PAIN, Second choice; Start 05/12/17 at 07:45; Stop 05/13/17 at 07:44 Prochlorperazine Edisylate (Compazine) 5 mg PACU PRN PRN IV NAUSEA, MRX1; Start 05/12/17 at 07:45; Stop 05/13/17 at 07:44 Heparin Sodium (Porcine) 1000 unit/Sodium Chloride 1,001 ml @ 1,001 mls/hr 1X PERIOP ONCE IRR ; Start 05/12/17 at 08:00; Stop 05/12/17 at 08:59; Status DC Morphine Sulfate 2 mg PRN Q2HR PRN IV PAIN Last administered on 05/12/17t 08:17 ; Start 05/12/17 at 08:15; Stop 05/13/17 at 08:14 Famotidine (Pepcid) 20 mg BID IVP ; Start 05/12/17 at 10:00 Active Scripts Active Reported Oxycodone Hcl 5 Mg Capsule 5 Mg PO PRN Allergies Allergies: Coded Allergies: No Known Drug Allergies (Unverified , 05/11/17) ROS Gastrointestinal: Yes Nausea, Yes Vomiting, Yes Diarrhea Physical Exam General: Alert, Oriented X3, Cooperative, No acute distress HEENT: Atraumatic, EOMI, Other (anicteric sclera) Lungs: Normal air movement Abdomen: Soft, Other (TTP epigastric, not in lower abd, no masses or hernias) Extremities: No clubbing, No cyanosis Skin: No rashes, No breakdown Neuro: Normal gait, Normal speech Psych/Mental Status: Mental status NL, Mood NL MUSCULOSKELETAL: No joint tenderness Vitals VITALS Vital Signs Date Time Temp Pulse Resp B/P (MAP) Pulse Ox O2 Delivery O2 Flow Rate FiO2 05/12/17 08:17 Room Air 05/12/17 07:00 98.1 55 16 95/60 (72) 98 98.1 Labs Labs Laboratory Tests Test 05/11/17 07:20 05/11/17 16:45 05/12/17 08:35 05/12/17 08:40 White Blood Count 11.1 x10^3/uL (4.0-11.0) 3.0 x10^3/uL (4.0-11.0) Red Blood Count 4.57 x10^6/uL (3.50-5.40) 4.33 x10^6/uL (3.50-5.40) Hemoglobin 13.9 g/dL (12.0-15.5) 13.2 g/dL (12.0-15.5) Hematocrit 42.1 % (36.0-47.0) 39.8 % (36.0-47.0) Mean Corpuscular Volume 92 fL (79-100) 92 fL (79-100) Mean Corpuscular Hemoglobin 31 pg (25-35) 31 pg (25-35) Mean Corpuscular Hemoglobin Concent 33 g/dL (31-37) 33 g/dL (31-37) Red Cell Distribution Width 13.1 % (11.5-14.5) 13.0 % (11.5-14.5) Platelet Count 195 x10^3/uL (140-400) 162 x10^3/uL (140-400) Neutrophils (%) (Auto) 85 % (31-73) 66 % (31-73) Lymphocytes (%) (Auto) 10 % (24-48) 21 % (24-48) Monocytes (%) (Auto) 5 % (0-9) 10 % (0-9) Eosinophils (%) (Auto) 1 % (0-3) 2 % (0-3) Basophils (%) (Auto) 1 % (0-3) 1 % (0-3) Neutrophils # (Auto) 9.3 x10^3uL (1.8-7.7) 2.0 x10^3uL (1.8-7.7) Lymphocytes # (Auto) 1.1 x10^3/uL (1.0-4.8) 0.6 x10^3/uL (1.0-4.8) Monocytes # (Auto) 0.5 x10^3/uL (0.0-1.1) 0.3 x10^3/uL (0.0-1.1) Eosinophils # (Auto) 0.1 x10^3/uL (0.0-0.7) 0.1 x10^3/uL (0.0-0.7) Basophils # (Auto) 0.1 x10^3/uL (0.0-0.2) 0.0 x10^3/uL (0.0-0.2) Sodium Level 139 mmol/L (136-145) 140 mmol/L (136-145) Potassium Level 3.4 mmol/L (3.5-5.1) 3.5 mmol/L (3.5-5.1) Chloride Level 105 mmol/L (98-107) 105 mmol/L (98-107) Carbon Dioxide Level 25 mmol/L (21-32) 27 mmol/L (21-32) Anion Gap 9 (6-14) 8 (6-14) Blood Urea Nitrogen 10 mg/dL (7-20) 6 mg/dL (7-20) Creatinine 0.8 mg/dL (0.6-1.0) 0.8 mg/dL (0.6-1.0) Estimated GFR (Cockcroft-Gault) 90.5 90.5 BUN/Creatinine Ratio 13 (6-20) 8 (6-20) Glucose Level 114 mg/dL (70-99) 85 mg/dL (70-99) Calcium Level 8.4 mg/dL (8.5-10.1) 7.9 mg/dL (8.5-10.1) Total Bilirubin 0.3 mg/dL (0.2-1.0) 0.7 mg/dL (0.2-1.0) Direct Bilirubin 0.1 mg/dL (0.0-0.2) Aspartate Amino Transf (AST/SGOT) 27 U/L (15-37) 157 U/L (15-37) Alanine Aminotransferase (ALT/SGPT) 24 U/L (14-59) 243 U/L (14-59) Alkaline Phosphatase 50 U/L (46-116) 79 U/L (46-116) Total Protein 7.5 g/dL (6.4-8.2) 7.2 g/dL (6.4-8.2) Albumin 4.1 g/dL (3.4-5.0) 3.6 g/dL (3.4-5.0) Albumin/Globulin Ratio 1.1 (1.0-1.7) 1.0 (1.0-1.7) Lipase 100 U/L (73-393) Serum Test, Qualitative Negative (NEG) Urine Collection Type Unknown Urine Color Yellow Urine Clarity Clear Urine pH 6.0 Urine Specific [place] 1.025 Urine Protein Negative mg/dL (NEG-TRACE) Urine Glucose (UA) Negative mg/dL (NEG) Urine Ketones (Stick) Negative mg/dL (NEG) Urine Blood Negative (NEG) Urine Nitrite Negative (NEG) Urine Bilirubin Negative (NEG) Urine Urobilinogen Dipstick 0.2 mg/dL (0.2 mg/dL) Urine Leukocyte Esterase Negative (NEG) Urine RBC 0 /HPF (0-2) Urine WBC 1-4 /HPF (0-4) Urine Squamous Epithelial Cells Few /LPF Urine Bacteria Few /HPF (0-FEW) Urine Mucus Slight /LPF Laboratory Tests Test 05/11/17 16:45 05/12/17 08:35 05/12/17 08:40 Urine Collection Type Unknown Urine Color Yellow Urine Clarity Clear Urine pH 6.0 Urine Specific [place] 1.025 Urine Protein Negative mg/dL (NEG-TRACE) Urine Glucose (UA) Negative mg/dL (NEG) Urine Ketones (Stick) Negative mg/dL (NEG) Urine Blood Negative (NEG) Urine Nitrite Negative (NEG) Urine Bilirubin Negative (NEG) Urine Urobilinogen Dipstick 0.2 mg/dL (0.2 mg/dL) Urine Leukocyte Esterase Negative (NEG) Urine RBC 0 /HPF (0-2) Urine WBC 1-4 /HPF (0-4) Urine Squamous Epithelial Cells Few /LPF Urine Bacteria Few /HPF (0-FEW) Urine Mucus Slight /LPF White Blood Count 3.0 x10^3/uL (4.0-11.0) Red Blood Count 4.33 x10^6/uL (3.50-5.40) Hemoglobin 13.2 g/dL (12.0-15.5) Hematocrit 39.8 % (36.0-47.0) Mean Corpuscular Volume 92 fL (79-100) Mean Corpuscular Hemoglobin 31 pg (25-35) Mean Corpuscular Hemoglobin Concent 33 g/dL (31-37) Red Cell Distribution Width 13.0 % (11.5-14.5) Platelet Count 162 x10^3/uL (140-400) Neutrophils (%) (Auto) 66 % (31-73) Lymphocytes (%) (Auto) 21 % (24-48) Monocytes (%) (Auto) 10 % (0-9) Eosinophils (%) (Auto) 2 % (0-3) Basophils (%) (Auto) 1 % (0-3) Neutrophils # (Auto) 2.0 x10^3uL (1.8-7.7) Lymphocytes # (Auto) 0.6 x10^3/uL (1.0-4.8) Monocytes # (Auto) 0.3 x10^3/uL (0.0-1.1) Eosinophils # (Auto) 0.1 x10^3/uL (0.0-0.7) Basophils # (Auto) 0.0 x10^3/uL (0.0-0.2) Sodium Level 140 mmol/L (136-145) Potassium Level 3.5 mmol/L (3.5-5.1) Chloride Level 105 mmol/L (98-107) Carbon Dioxide Level 27 mmol/L (21-32) Anion Gap 8 (6-14) Blood Urea Nitrogen 6 mg/dL (7-20) Creatinine 0.8 mg/dL (0.6-1.0) Estimated GFR (Cockcroft-Gault) 90.5 BUN/Creatinine Ratio 8 (6-20) Glucose Level 85 mg/dL (70-99) Calcium Level 7.9 mg/dL (8.5-10.1) Total Bilirubin 0.7 mg/dL (0.2-1.0) Aspartate Amino Transf (AST/SGOT) 157 U/L (15-37) Alanine Aminotransferase (ALT/SGPT) 243 U/L (14-59) Alkaline Phosphatase 79 U/L (46-116) Total Protein 7.2 g/dL (6.4-8.2) Albumin 3.6 g/dL (3.4-5.0) Albumin/Globulin Ratio 1.0 (1.0-1.7) Images Images US-no gallstones, CT-periportal edema, some ascites Assessment/Plan Assessment/Plan liver inflammation of unknown etiology d/w GI, agree with workup. Given pt's discomfort, would favor continued inpt workup, as opposed to return home. potentially GB issue, but not obvious potentially schedule for lap cholecystectomy with grams in AM, if favored. d/w pt and pt's mother. Thanks for consult! RIC HANKINS MD May 12, 2017 10:04
[2017-05-12] MEDS: FAMOTIDINE 20 MG/2 ML VIAL IVP SCH ×2 (11:17→20:44)
[2017-05-12] MEDS ORDERED: ceFAZolin 2GM PREMIX 2 GM/50 ML BAG IV ONE (12:00)
[2017-05-12] MEDS ORDERED: DOXYCYCLINE HYCLATE 100 MG in IV DEXTROSE 5% 100 ML IV SCH (14:00)
--- NOTE | 2017-05-12 14:00 | PDOC ---
PROGRESS NOTES Chief Complaint Chief Complaint Abd pain ASSESSMENT AND PLAN: 1. Abd pain: persisting, not affected by movement or PO intake (although NPO since admit). N/V resolved. diarrhea x1 yesterday with minimal blood. CT reviewed: pain correlates with location of GB, but presentation is a bit unusual, feng given signs of active hepatitis by labs and hepatomegaly. suspect "atypical" infect, viral or tick-borne illness. d/w GI. review smear and obtain add.l labs. less likely GB dz by imaging. 2. Pain control: adequate on current IV regimen 3. Nutrition: keep NPO for now History of Present Illness History of Present Illness feels ok, wants the pain taken care of, if need be surgically. Vitals Vitals Vital Signs Date Time Temp Pulse Resp B/P (MAP) Pulse Ox O2 Delivery O2 Flow Rate FiO2 05/12/17 11:14 98.2 53 18 100/68 (79) 97 Room Air 98.2 Physical Exam General: Alert, Oriented X3, Cooperative, No acute distress Heart: Regular rate Lungs: Clear Abdomen: Soft, Other (TTP 4 cm above umbilicus.) Extremities: No clubbing, No cyanosis Skin: No rashes, No breakdown Labs LABS Laboratory Tests Test 05/11/17 16:45 05/12/17 08:35 05/12/17 08:40 05/12/17 09:40 Urine Collection Type Unknown Urine Color Yellow Urine Clarity Clear Urine pH 6.0 Urine Specific [place] 1.025 Urine Protein Negative mg/dL (NEG-TRACE) Urine Glucose (UA) Negative mg/dL (NEG) Urine Ketones (Stick) Negative mg/dL (NEG) Urine Blood Negative (NEG) Urine Nitrite Negative (NEG) Urine Bilirubin Negative (NEG) Urine Urobilinogen Dipstick 0.2 mg/dL (0.2 mg/dL) Urine Leukocyte Esterase Negative (NEG) Urine RBC 0 /HPF (0-2) Urine WBC 1-4 /HPF (0-4) Urine Squamous Epithelial Cells Few /LPF Urine Bacteria Few /HPF (0-FEW) Urine Mucus Slight /LPF White Blood Count 3.0 x10^3/uL (4.0-11.0) Red Blood Count 4.33 x10^6/uL (3.50-5.40) Hemoglobin 13.2 g/dL (12.0-15.5) Hematocrit 39.8 % (36.0-47.0) Mean Corpuscular Volume 92 fL (79-100) Mean Corpuscular Hemoglobin 31 pg (25-35) Mean Corpuscular Hemoglobin Concent 33 g/dL (31-37) Red Cell Distribution Width 13.0 % (11.5-14.5) Platelet Count 162 x10^3/uL (140-400) Neutrophils (%) (Auto) 66 % (31-73) Lymphocytes (%) (Auto) 21 % (24-48) Monocytes (%) (Auto) 10 % (0-9) Eosinophils (%) (Auto) 2 % (0-3) Basophils (%) (Auto) 1 % (0-3) Neutrophils # (Auto) 2.0 x10^3uL (1.8-7.7) Lymphocytes # (Auto) 0.6 x10^3/uL (1.0-4.8) Monocytes # (Auto) 0.3 x10^3/uL (0.0-1.1) Eosinophils # (Auto) 0.1 x10^3/uL (0.0-0.7) Basophils # (Auto) 0.0 x10^3/uL (0.0-0.2) Sodium Level 140 mmol/L (136-145) Potassium Level 3.5 mmol/L (3.5-5.1) Chloride Level 105 mmol/L (98-107) Carbon Dioxide Level 27 mmol/L (21-32) Anion Gap 8 (6-14) Blood Urea Nitrogen 6 mg/dL (7-20) Creatinine 0.8 mg/dL (0.6-1.0) Estimated GFR (Cockcroft-Gault) 90.5 BUN/Creatinine Ratio 8 (6-20) Glucose Level 85 mg/dL (70-99) Calcium Level 7.9 mg/dL (8.5-10.1) Total Bilirubin 0.7 mg/dL (0.2-1.0) Aspartate Amino Transf (AST/SGOT) 157 U/L (15-37) Alanine Aminotransferase (ALT/SGPT) 243 U/L (14-59) Alkaline Phosphatase 79 U/L (46-116) Total Protein 7.2 g/dL (6.4-8.2) Albumin 3.6 g/dL (3.4-5.0) Albumin/Globulin Ratio 1.0 (1.0-1.7) Urine Opiates Screen Pos (NEG) Urine Methadone Screen Neg (NEG) Urine Barbiturates Neg (NEG) Urine Phencyclidine Screen Neg (NEG) Urine Amphetamine/Methamphetamine Neg (NEG) Urine Benzodiazepines Screen Neg (NEG) Urine Cocaine Screen Neg (NEG) Urine Cannabinoids Screen Neg (NEG) Urine Ethyl Alcohol Neg (NEG) ANTHONY ARGUETA MD May 12, 2017 14:00
[2017-05-12] MEDS ORDERED: MORPHINE SULFATE 4 MG/ML DISP.SYRIN. IV ONE (16:00)
--- NOTE | 2017-05-12 17:04 | RAD ---
Hepatobiliary scan 05/12/2017 at 1544 hours Indication: Nausea and vomiting with mid abdominal pain. Comparison: Abdominal ultrasound 05/11/2017, abdomen/pelvis CT 05/11/2017 Technique: 5.5 mCi technetium 99m Choletec was administered intravenously after which point our imaging utilizing gamma camera was performed. 4 mg morphine was administered intravenously at 55 minutes. Findings: There is normal hepatocellular uptake from the blood pool. Normal transit time of radiotracer to the small bowel. Due to nonvisualization of the gallbladder at 55 minutes, 4 mg morphine was administered intravenously. Subsequent uptake within the gallbladder is identified. Impression: No scintigraphic evidence for acute cholecystitis.
--- NOTE | 2017-05-12 17:55 | PDOC ---
Infectious Disease Note ROS ROS GEN: Denies fevers, chills, sweats HEENT: Denies blurred vision, sore throat CV: Denies chest pain RESP: Denies shortness of air, cough GI: Denies n/v/d NEURO: Denies confusion, dizziness MSK: Denies weakness, joint pain/swelling Vital Sign Vital Signs Vital Signs Date Time Temp Pulse Resp B/P (MAP) Pulse Ox O2 Delivery O2 Flow Rate FiO2 05/12/17 17:04 Room Air 05/12/17 16:25 108/66 (80) 05/12/17 16:08 58 19 99 05/12/17 15:14 98.1 98.1 Physical Exam PHYSICAL EXAM GENERAL: NAD, Alert HEENT: PERRL, OC/OP NECK: Supple, no JVD, no LN LUNGS: Clear HEART: S1S2, no gallop, no murmur ABD: Soft, NT, no organomegaly, no rebound EXT: No edema, no cyanosis [employer]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, 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, no focal neurologic deficit SKIN: No rash IV: ok Labs Lab Laboratory Tests Test 05/12/17 08:35 05/12/17 08:40 05/12/17 09:40 White Blood Count 3.0 x10^3/uL (4.0-11.0) Red Blood Count 4.33 x10^6/uL (3.50-5.40) Hemoglobin 13.2 g/dL (12.0-15.5) Hematocrit 39.8 % (36.0-47.0) Mean Corpuscular Volume 92 fL (79-100) Mean Corpuscular Hemoglobin 31 pg (25-35) Mean Corpuscular Hemoglobin Concent 33 g/dL (31-37) Red Cell Distribution Width 13.0 % (11.5-14.5) Platelet Count 162 x10^3/uL (140-400) Neutrophils (%) (Auto) 66 % (31-73) Lymphocytes (%) (Auto) 21 % (24-48) Monocytes (%) (Auto) 10 % (0-9) Eosinophils (%) (Auto) 2 % (0-3) Basophils (%) (Auto) 1 % (0-3) Neutrophils # (Auto) 2.0 x10^3uL (1.8-7.7) Lymphocytes # (Auto) 0.6 x10^3/uL (1.0-4.8) Monocytes # (Auto) 0.3 x10^3/uL (0.0-1.1) Eosinophils # (Auto) 0.1 x10^3/uL (0.0-0.7) Basophils # (Auto) 0.0 x10^3/uL (0.0-0.2) Reticulocyte Count (auto) 1.2 % (0.5-2.5) Sodium Level 140 mmol/L (136-145) Potassium Level 3.5 mmol/L (3.5-5.1) Chloride Level 105 mmol/L (98-107) Carbon Dioxide Level 27 mmol/L (21-32) Anion Gap 8 (6-14) Blood Urea Nitrogen 6 mg/dL (7-20) Creatinine 0.8 mg/dL (0.6-1.0) Estimated GFR (Cockcroft-Gault) 90.5 BUN/Creatinine Ratio 8 (6-20) Glucose Level 85 mg/dL (70-99) Calcium Level 7.9 mg/dL (8.5-10.1) Total Bilirubin 0.7 mg/dL (0.2-1.0) Aspartate Amino Transf (AST/SGOT) 157 U/L (15-37) Alanine Aminotransferase (ALT/SGPT) 243 U/L (14-59) Alkaline Phosphatase 79 U/L (46-116) Total Protein 7.2 g/dL (6.4-8.2) Albumin 3.6 g/dL (3.4-5.0) Albumin/Globulin Ratio 1.0 (1.0-1.7) Urine Opiates Screen Pos (NEG) Urine Methadone Screen Neg (NEG) Urine Barbiturates Neg (NEG) Urine Phencyclidine Screen Neg (NEG) Urine Amphetamine/Methamphetamine Neg (NEG) Urine Benzodiazepines Screen Neg (NEG) Urine Cocaine Screen Neg (NEG) Urine Cannabinoids Screen Neg (NEG) Urine Ethyl Alcohol Neg (NEG) Objective Assessment Abdominal pain - periumbilical. Denies abnormal vaginal discharge Leukocytosis - now leukopenia. No Tick Transamintis H/o ovarian cyst - now menstrating Plan Plan of Care ? viral process given leukopenia/transaminitis/ increasing lymphocytes. No hiking for over 3 weeks F/u CMV/EBV Cont Doxy for now F/u am labs D/w mother Thank you # [phone] DAVID RILEY MD May 12, 2017 17:55
[2017-05-12] MEDS: MORPHINE SULFATE 4 MG/ML DISP.SYRIN. IV PRN ×2 (20:44→23:23)
[2017-05-12 21:12] LABS: HEP A IGM ABDY Negative (Negative)
--- NOTE | 2017-05-13 03:09 | CONS ---
DATE OF CONSULTATION: 05/12/2017 LOCATION: The patient is in #[id number]. REQUESTING PHYSICIAN: Dr. Madison. REASON FOR CONSULTATION: Questionable . HISTORY OF PRESENT ILLNESS: The patient is a very pleasant 21-year-old female who spent the summer in [place] of [place]. She drove this far in week of this past Friday. Arrived at a hotel about 12:30 was getting ready for bed, had some mild discomfort around 1 or 1:30, but then around 2 or 2:30 had sudden onset of abdominal pain. Her plan was to get up in the morning about 5 or [address] drive 11 hours so she could get home to [place]. At around 6 or 6:30 when she was driving, she had intense abdominal pain. 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 She had a white count of 11.1, neutrophils were 85%. She had normal liver function study tests. Urinalysis was not concerning for urinary tract infection. Drug screen was positive for opiates, but she had over the past week had complications with severe ovarian cyst for which she was taking some medications for. Additionally, she had been menstruating at this time and it was a particularly difficult menstrual period as she was having some large clots that were being passed. She underwent an abdominal CT scan of the pelvis with contrast. She had some periportal edema seen throughout the liver, nonspecific with questionable cholelithiasis. Abdominal ultrasound was performed that showed that the gallbladder is contracted, but no stones were visualized. She subsequently underwent a HIDA scan today, which showed no evidence for acute cholecystitis. She did have some nausea and some vomiting. Denies any blood in her vomit. She had some loose stools and did state she had a little bit of blood in her stool. Denies any complications with hemorrhoids, but then again she is on her menstrual period as well. Denies any joint inflammation denies any rashes. Currently, she is sitting upright and she is feeling better. She is tolerating clears, but she still has some episodes of abdominal pain. PAST SURGICAL HISTORY: Positive for ovarian cyst as well as a costochondritis. REVIEW OF SYSTEMS: Otherwise negative except as mentioned above. ALLERGIES: No known drug allergies. SOCIAL HISTORY: No tobacco or alcohol. She does have a boyfriend. She denies any drugs. FAMILY HISTORY: Positive for hypertension and blood cancer in her father and diabetes, Parkinson's, and bone marrow cancer on her father's side. CURRENT MEDICATIONS: Include doxycycline, Pepcid, morphine and fentanyl. Other pain meds are reviewed and available in the chart. PHYSICAL EXAMINATION: VITAL SIGNS: She has been afebrile since her presentation. Current temperature 98.1, pulse 58, respirations 20, blood pressure 108/66, satting 99% on room air. CONSTITUTIONAL: She is pleasant. She is cooperative. She is no acute distress. She is sitting upright in bed. She is tolerating clears. HEENT: Pupils are equal and reactive. She has normal conjunctivae. Oral cavity, oropharynx is clear. Good dentition. NECK: Supple, no JVD. LUNGS: Clear to auscultation bilaterally. HEART: S1, S2. ABDOMEN: Flat. She does have a small umbilical studs and appears to be clean. She has positive bowel sounds. There is no distention and no rebound and there is no definite guarding, but she does have some tenderness just above the umbilical area. EXTREMITIES: Without clubbing, cyanosis or gross edema. SKIN: Warm to touch without signs of rash. Joints are not inflamed. NEUROLOGIC: She is nonfocal, moves all extremities. PSYCHIATRIC: Affect is appropriate. LABORATORY DATA: White count today 3, hemoglobin 13.2, platelets 162, neutrophils 66%, lymphs are 21, monocytes are 10. was negative. AST today 157, ALT 243, alkaline phosphatase was normal. Bilirubin 0.7, creatinine 0.8, glucose of 85. Urine was clean. Toxicology reviewed in history of present illness and imaging reviewed as well. IMPRESSION: 1. Abdominal pain is periumbilical, denies any abnormal vaginal discharge. She does not have an IUD. She did not even know what an IUD was. 2. Leukocytosis, now leukopenia. No tick 3. Transaminitis. 4. History of ovarian cyst, now menstruating. RECOMMENDATIONS: This could be a viral process given her leukopenia and transaminitis and increasing lymphocytes. She has not had any hiking for the past 3 weeks ago so decrease her chance for a tick. EBV and CMV have been ordered. We will follow up on these and continue doxycycline and follow up labs in the morning. This was discussed with the mother. Thank for allowing us to participate in this patient's care. If you have any questions, please do not hesitate to contact me. DAVID RILEY MD DR: LISBET/jaelyn JOB#: [id number] / [id number]
[2017-05-13] MEDS: ONDANSETRON PF 4 MG/2 ML VIAL. IV PRN (05:46)
[2017-05-13] MEDS: MORPHINE SULFATE 4 MG/ML DISP.SYRIN. IV PRN ×4 (05:51→17:02)
[2017-05-13] MEDS ORDERED: DOXYCYCLINE HYCLATE 100 MG in IV DEXTROSE 5% 100 ML IV SCH (06:00)
[2017-05-13 06:49] LABS: BASO % 1 % (0-3); EOS % 1 % (0-3); HEMATOCRIT 36.6 % (36.0-47.0); HEMOGLOBIN 12.6 g/dL (12.0-15.5); LYMPH # 1.3 x10^3/uL (1.0-4.8); LYMPH % 52 % (24-48); MEAN CORPUSCULAR HEMOGLOBIN 31 pg (25-35); MEAN CORPUSCULAR HGB CONC 35 g/dL (31-37); MEAN CORPUSCULAR VOLUME 91 fL (79-100); MONO % 9 % (0-9); NEUT % 37 % (31-73); PLATELET COUNT 149 x10^3/uL (140-400); RED BLOOD COUNT 4.03 x10^6/uL (3.50-5.40); RED CELL DISTRIBUTION WIDTH 12.9 % (11.5-14.5); WHITE BLOOD COUNT 2.6 x10^3/uL (4.0-11.0)
[2017-05-13 07:00] VITALS: BP 119/75
[2017-05-13 07:13] LABS: ALBUMIN 3.3 g/dL (3.4-5.0); CALCIUM 8.4 mg/dL (8.5-10.1); CREATININE 0.8 mg/dL (0.6-1.0); GFR 90.5; POTASSIUM 3.8 mmol/L (3.5-5.1); TOTAL BILIRUBIN 0.3 mg/dL (0.2-1.0); TOTAL PROTEIN 6.7 g/dL (6.4-8.2)
[2017-05-13] MEDS: FAMOTIDINE 20 MG/2 ML VIAL IVP SCH ×2 (08:20→18:56)
--- NOTE | 2017-05-13 09:46 | PDOC ---
Infectious Disease Note Subjective Subjective Is having recurrent abd pain this am. No increase vaginal bleed or additional discharge Has some nausea but also a little hungry ROS ROS GEN: Denies fevers, chills, sweats HEENT: Denies blurred vision, sore throat CV: Denies chest pain RESP: Denies shortness of air, cough GI: Denies v/d NEURO: Denies confusion, dizziness MSK: Denies weakness, joint pain/swelling Vital Sign Vital Signs Vital Signs Date Time Temp Pulse Resp B/P (MAP) Pulse Ox O2 Delivery O2 Flow Rate FiO2 05/13/17 08:20 16 05/13/17 07:00 97.9 53 119/75 (90) 99 Room Air 97.9 Physical Exam PHYSICAL EXAM GENERAL: NAD, Alert, sitting on side of bed but looks tired HEENT: PERRL, OC/OP - clear NECK: Supple, no JVD, no LN LUNGS: Clear HEART: S1S2, no gallop, no murmur ABD: Soft, no organomegaly, no rebound. 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, no focal neurologic deficit SKIN: No rash IV: ok Labs Lab Laboratory Tests Test 05/13/17 06:25 White Blood Count 2.6 x10^3/uL (4.0-11.0) Red Blood Count 4.03 x10^6/uL (3.50-5.40) Hemoglobin 12.6 g/dL (12.0-15.5) Hematocrit 36.6 % (36.0-47.0) Mean Corpuscular Volume 91 fL (79-100) Mean Corpuscular Hemoglobin 31 pg (25-35) Mean Corpuscular Hemoglobin Concent 35 g/dL (31-37) Red Cell Distribution Width 12.9 % (11.5-14.5) Platelet Count 149 x10^3/uL (140-400) Neutrophils (%) (Auto) 37 % (31-73) Lymphocytes (%) (Auto) 52 % (24-48) Monocytes (%) (Auto) 9 % (0-9) Eosinophils (%) (Auto) 1 % (0-3) Basophils (%) (Auto) 1 % (0-3) Neutrophils # (Auto) 1.0 x10^3uL (1.8-7.7) Lymphocytes # (Auto) 1.3 x10^3/uL (1.0-4.8) Monocytes # (Auto) 0.2 x10^3/uL (0.0-1.1) Eosinophils # (Auto) 0.0 x10^3/uL (0.0-0.7) Basophils # (Auto) 0.0 x10^3/uL (0.0-0.2) Sodium Level 142 mmol/L (136-145) Potassium Level 3.8 mmol/L (3.5-5.1) Chloride Level 106 mmol/L (98-107) Carbon Dioxide Level 26 mmol/L (21-32) Anion Gap 10 (6-14) Blood Urea Nitrogen 6 mg/dL (7-20) Creatinine 0.8 mg/dL (0.6-1.0) Estimated GFR (Cockcroft-Gault) 90.5 BUN/Creatinine Ratio 8 (6-20) Glucose Level 87 mg/dL (70-99) Calcium Level 8.4 mg/dL (8.5-10.1) Total Bilirubin 0.3 mg/dL (0.2-1.0) Aspartate Amino Transf (AST/SGOT) 63 U/L (15-37) Alanine Aminotransferase (ALT/SGPT) 144 U/L (14-59) Alkaline Phosphatase 70 U/L (46-116) Total Protein 6.7 g/dL (6.4-8.2) Albumin 3.3 g/dL (3.4-5.0) Albumin/Globulin Ratio 1.0 (1.0-1.7) Objective Assessment Abdominal pain - periumbilical. Denies abnormal vaginal discharge Leukocytosis - now leukopenia. No Tick and increasing lymphocytes Transaminitis - better H/o ovarian cyst - now menstrating Plan Plan of Care ? viral process (CMV neg/Spleen not enlarged) given leukopenia/transaminitis/ increasing lymphocytes. No hiking for over 3 weeks doubt tick illness F/u EBV Discont Doxy - avoid potential side effects Await further GI f/u - ? need for CT with oral contrast only and or EGD. 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
--- NOTE | 2017-05-13 09:53 | PDOC ---
PROGRESS NOTES Chief Complaint Chief Complaint Abd pain ASSESSMENT AND PLAN: 1. Abd pain: persisting, not affected by movement or PO intake (although NPO since admit). d/w GI and surgery services. plan for EGD today (anticipate low yield) 2. Pain control: adequate on current IV regimen 3. Hepatitis: LFTs improving. CMV serology neg, awaiting EBV/hep panel. 4. Leukopenia: c/w viral infect. monitor. 5. Nutrition: start clears History of Present Illness History of Present Illness pain persisting. no sandhya nausea Vitals Vitals Vital Signs Date Time Temp Pulse Resp B/P (MAP) Pulse Ox O2 Delivery O2 Flow Rate FiO2 05/13/17 08:20 16 05/13/17 07:00 97.9 53 119/75 (90) 99 Room Air 97.9 Physical Exam General: Alert, Oriented X3, Cooperative, No acute distress Heart: Regular rate Lungs: Clear Abdomen: Soft, Other (TTP 4 cm above umbilicus.) Extremities: No clubbing, No cyanosis Skin: No rashes, No breakdown Labs LABS Laboratory Tests Test 05/13/17 06:25 White Blood Count 2.6 x10^3/uL (4.0-11.0) Red Blood Count 4.03 x10^6/uL (3.50-5.40) Hemoglobin 12.6 g/dL (12.0-15.5) Hematocrit 36.6 % (36.0-47.0) Mean Corpuscular Volume 91 fL (79-100) Mean Corpuscular Hemoglobin 31 pg (25-35) Mean Corpuscular Hemoglobin Concent 35 g/dL (31-37) Red Cell Distribution Width 12.9 % (11.5-14.5) Platelet Count 149 x10^3/uL (140-400) Neutrophils (%) (Auto) 37 % (31-73) Lymphocytes (%) (Auto) 52 % (24-48) Monocytes (%) (Auto) 9 % (0-9) Eosinophils (%) (Auto) 1 % (0-3) Basophils (%) (Auto) 1 % (0-3) Neutrophils # (Auto) 1.0 x10^3uL (1.8-7.7) Lymphocytes # (Auto) 1.3 x10^3/uL (1.0-4.8) Monocytes # (Auto) 0.2 x10^3/uL (0.0-1.1) Eosinophils # (Auto) 0.0 x10^3/uL (0.0-0.7) Basophils # (Auto) 0.0 x10^3/uL (0.0-0.2) Sodium Level 142 mmol/L (136-145) Potassium Level 3.8 mmol/L (3.5-5.1) Chloride Level 106 mmol/L (98-107) Carbon Dioxide Level 26 mmol/L (21-32) Anion Gap 10 (6-14) Blood Urea Nitrogen 6 mg/dL (7-20) Creatinine 0.8 mg/dL (0.6-1.0) Estimated GFR (Cockcroft-Gault) 90.5 BUN/Creatinine Ratio 8 (6-20) Glucose Level 87 mg/dL (70-99) Calcium Level 8.4 mg/dL (8.5-10.1) Total Bilirubin 0.3 mg/dL (0.2-1.0) Aspartate Amino Transf (AST/SGOT) 63 U/L (15-37) Alanine Aminotransferase (ALT/SGPT) 144 U/L (14-59) Alkaline Phosphatase 70 U/L (46-116) Total Protein 6.7 g/dL (6.4-8.2) Albumin 3.3 g/dL (3.4-5.0) Albumin/Globulin Ratio 1.0 (1.0-1.7) ANTHONY ARGUETA MD May 13, 2017 09:53
--- NOTE | 2017-05-13 10:24 | PDOC ---
KASIE HINOJOSA COMMERCIAL SALES REPRESENTATIVE 05/13/17 1024: SURGICAL PROGRESS NOTE Subjective continued pain, epigastric + nausea Vital Signs Vital Signs Date Time Temp Pulse Resp B/P (MAP) Pulse Ox O2 Delivery O2 Flow Rate FiO2 05/13/17 08:20 16 05/13/17 08:00 Room Air 05/13/17 07:00 97.9 53 119/75 (90) 99 97.9 I&O Intake and Output 05/13/17 07:00 Intake Total 1050 ml Balance 1050 ml Intake Oral 850 ml IV Total 200 ml # Voids 6 General: Alert, Oriented X3, Cooperative, No acute distress Abdomen: Soft, Other (epigastric TTP) Labs Laboratory Tests Test 05/11/17 16:20 05/11/17 16:45 05/12/17 08:35 05/12/17 08:40 Cytomegalovirus IgG Antibody <0.60 U/mL (0.00-0.59) Cytomegalovirus IgM Antibody <30.0 AU/mL (0.0-29.9) Urine Collection Type Unknown Urine Color Yellow Urine Clarity Clear Urine pH 6.0 Urine Specific [place] 1.025 Urine Protein Negative mg/dL (NEG-TRACE) Urine Glucose (UA) Negative mg/dL (NEG) Urine Ketones (Stick) Negative mg/dL (NEG) Urine Blood Negative (NEG) Urine Nitrite Negative (NEG) Urine Bilirubin Negative (NEG) Urine Urobilinogen Dipstick 0.2 mg/dL (0.2 mg/dL) Urine Leukocyte Esterase Negative (NEG) Urine RBC 0 /HPF (0-2) Urine WBC 1-4 /HPF (0-4) Urine Squamous Epithelial Cells Few /LPF Urine Bacteria Few /HPF (0-FEW) Urine Mucus Slight /LPF White Blood Count 3.0 x10^3/uL (4.0-11.0) Red Blood Count 4.33 x10^6/uL (3.50-5.40) Hemoglobin 13.2 g/dL (12.0-15.5) Hematocrit 39.8 % (36.0-47.0) Mean Corpuscular Volume 92 fL (79-100) Mean Corpuscular Hemoglobin 31 pg (25-35) Mean Corpuscular Hemoglobin Concent 33 g/dL (31-37) Red Cell Distribution Width 13.0 % (11.5-14.5) Platelet Count 162 x10^3/uL (140-400) Neutrophils (%) (Auto) 66 % (31-73) Lymphocytes (%) (Auto) 21 % (24-48) Monocytes (%) (Auto) 10 % (0-9) Eosinophils (%) (Auto) 2 % (0-3) Basophils (%) (Auto) 1 % (0-3) Neutrophils # (Auto) 2.0 x10^3uL (1.8-7.7) Lymphocytes # (Auto) 0.6 x10^3/uL (1.0-4.8) Monocytes # (Auto) 0.3 x10^3/uL (0.0-1.1) Eosinophils # (Auto) 0.1 x10^3/uL (0.0-0.7) Basophils # (Auto) 0.0 x10^3/uL (0.0-0.2) Reticulocyte Count (auto) 1.2 % (0.5-2.5) Sodium Level 140 mmol/L (136-145) Potassium Level 3.5 mmol/L (3.5-5.1) Chloride Level 105 mmol/L (98-107) Carbon Dioxide Level 27 mmol/L (21-32) Anion Gap 8 (6-14) Blood Urea Nitrogen 6 mg/dL (7-20) Creatinine 0.8 mg/dL (0.6-1.0) Estimated GFR (Cockcroft-Gault) 90.5 BUN/Creatinine Ratio 8 (6-20) Glucose Level 85 mg/dL (70-99) Calcium Level 7.9 mg/dL (8.5-10.1) Total Bilirubin 0.7 mg/dL (0.2-1.0) Aspartate Amino Transf (AST/SGOT) 157 U/L (15-37) Alanine Aminotransferase (ALT/SGPT) 243 U/L (14-59) Alkaline Phosphatase 79 U/L (46-116) Total Protein 7.2 g/dL (6.4-8.2) Albumin 3.6 g/dL (3.4-5.0) Albumin/Globulin Ratio 1.0 (1.0-1.7) Hepatitis A IgM Antibody Negative (Negative) Hepatitis B Surface Antigen Negative (Negative) Hepatitis B Core IgM Antibody Negative (Negative) Hepatitis C Antibody <0.1 s/co ratio Test 8/14/17 09:40 05/13/17 06:25 Urine Opiates Screen Pos (NEG) Urine Methadone Screen Neg (NEG) Urine Barbiturates Neg (NEG) Urine Phencyclidine Screen Neg (NEG) Urine Amphetamine/Methamphetamine Neg (NEG) Urine Benzodiazepines Screen Neg (NEG) Urine Cocaine Screen Neg (NEG) Urine Cannabinoids Screen Neg (NEG) Urine Ethyl Alcohol Neg (NEG) White Blood Count 2.6 x10^3/uL (4.0-11.0) Red Blood Count 4.03 x10^6/uL (3.50-5.40) Hemoglobin 12.6 g/dL (12.0-15.5) Hematocrit 36.6 % (36.0-47.0) Mean Corpuscular Volume 91 fL (79-100) Mean Corpuscular Hemoglobin 31 pg (25-35) Mean Corpuscular Hemoglobin Concent 35 g/dL (31-37) Red Cell Distribution Width 12.9 % (11.5-14.5) Platelet Count 149 x10^3/uL (140-400) Neutrophils (%) (Auto) 37 % (31-73) Lymphocytes (%) (Auto) 52 % (24-48) Monocytes (%) (Auto) 9 % (0-9) Eosinophils (%) (Auto) 1 % (0-3) Basophils (%) (Auto) 1 % (0-3) Neutrophils # (Auto) 1.0 x10^3uL (1.8-7.7) Lymphocytes # (Auto) 1.3 x10^3/uL (1.0-4.8) Monocytes # (Auto) 0.2 x10^3/uL (0.0-1.1) Eosinophils # (Auto) 0.0 x10^3/uL (0.0-0.7) Basophils # (Auto) 0.0 x10^3/uL (0.0-0.2) Sodium Level 142 mmol/L (136-145) Potassium Level 3.8 mmol/L (3.5-5.1) Chloride Level 106 mmol/L (98-107) Carbon Dioxide Level 26 mmol/L (21-32) Anion Gap 10 (6-14) Blood Urea Nitrogen 6 mg/dL (7-20) Creatinine 0.8 mg/dL (0.6-1.0) Estimated GFR (Cockcroft-Gault) 90.5 BUN/Creatinine Ratio 8 (6-20) Glucose Level 87 mg/dL (70-99) Calcium Level 8.4 mg/dL (8.5-10.1) Total Bilirubin 0.3 mg/dL (0.2-1.0) Aspartate Amino Transf (AST/SGOT) 63 U/L (15-37) Alanine Aminotransferase (ALT/SGPT) 144 U/L (14-59) Alkaline Phosphatase 70 U/L (46-116) Total Protein 6.7 g/dL (6.4-8.2) Albumin 3.3 g/dL (3.4-5.0) Albumin/Globulin Ratio 1.0 (1.0-1.7) Laboratory Tests Test 05/13/17 06:25 White Blood Count 2.6 x10^3/uL (4.0-11.0) Red Blood Count 4.03 x10^6/uL (3.50-5.40) Hemoglobin 12.6 g/dL (12.0-15.5) Hematocrit 36.6 % (36.0-47.0) Mean Corpuscular Volume 91 fL (79-100) Mean Corpuscular Hemoglobin 31 pg (25-35) Mean Corpuscular Hemoglobin Concent 35 g/dL (31-37) Red Cell Distribution Width 12.9 % (11.5-14.5) Platelet Count 149 x10^3/uL (140-400) Neutrophils (%) (Auto) 37 % (31-73) Lymphocytes (%) (Auto) 52 % (24-48) Monocytes (%) (Auto) 9 % (0-9) Eosinophils (%) (Auto) 1 % (0-3) Basophils (%) (Auto) 1 % (0-3) Neutrophils # (Auto) 1.0 x10^3uL (1.8-7.7) Lymphocytes # (Auto) 1.3 x10^3/uL (1.0-4.8) Monocytes # (Auto) 0.2 x10^3/uL (0.0-1.1) Eosinophils # (Auto) 0.0 x10^3/uL (0.0-0.7) Basophils # (Auto) 0.0 x10^3/uL (0.0-0.2) Sodium Level 142 mmol/L (136-145) Potassium Level 3.8 mmol/L (3.5-5.1) Chloride Level 106 mmol/L (98-107) Carbon Dioxide Level 26 mmol/L (21-32) Anion Gap 10 (6-14) Blood Urea Nitrogen 6 mg/dL (7-20) Creatinine 0.8 mg/dL (0.6-1.0) Estimated GFR (Cockcroft-Gault) 90.5 BUN/Creatinine Ratio 8 (6-20) Glucose Level 87 mg/dL (70-99) Calcium Level 8.4 mg/dL (8.5-10.1) Total Bilirubin 0.3 mg/dL (0.2-1.0) Aspartate Amino Transf (AST/SGOT) 63 U/L (15-37) Alanine Aminotransferase (ALT/SGPT) 144 U/L (14-59) Alkaline Phosphatase 70 U/L (46-116) Total Protein 6.7 g/dL (6.4-8.2) Albumin 3.3 g/dL (3.4-5.0) Albumin/Globulin Ratio 1.0 (1.0-1.7) Problem List Problems Medical Problems: (1) Abdominal pain of unknown etiology Status: Acute Assessment/Plan ongoing w/u in progress GI plans for EGD today no surgical plans at this time, Dr Sullivan will follow Problems: RIC SULLIVAN MD 05/13/17 1419: SURGICAL PROGRESS NOTE Assessment/Plan Pt seen and examined Agree with Ms. Hinojosa's note Pt with c/o persistent pain d/w pt and pt's daughter no obvious surgical intervention at this time cont supportive care Problems: KASIE HINOJOSA COMMERCIAL SALES REPRESENTATIVE May 13, 2017 10:24 RIC SULLIVAN MD May 13, 2017 14:19
--- NOTE | 2017-05-13 10:26 | PDOC ---
G I PROGRESS NOTE Subjective Says feels miserable. Hasn't eaten. Mid/epigastric pain; not clearly positional, but maybe. Now offers h/o prior EGD/colonoscopy to r/o "celiac", maybe IBD; apparently told IBS. Would like to r/o ulcer. Physical Exam Lungs clear. RRR Abdomen soft, not distended. Supraumbilical/epigastric tenderness. Review of Relevant I have reviewed the following items rosalie (where applicable) has been applied. Labs Laboratory Tests Test 05/11/17 16:20 05/11/17 16:45 05/12/17 08:35 05/12/17 08:40 Cytomegalovirus IgG Antibody <0.60 U/mL (0.00-0.59) Cytomegalovirus IgM Antibody <30.0 AU/mL (0.0-29.9) Urine Collection Type Unknown Urine Color Yellow Urine Clarity Clear Urine pH 6.0 Urine Specific [place] 1.025 Urine Protein Negative mg/dL (NEG-TRACE) Urine Glucose (UA) Negative mg/dL (NEG) Urine Ketones (Stick) Negative mg/dL (NEG) Urine Blood Negative (NEG) Urine Nitrite Negative (NEG) Urine Bilirubin Negative (NEG) Urine Urobilinogen Dipstick 0.2 mg/dL (0.2 mg/dL) Urine Leukocyte Esterase Negative (NEG) Urine RBC 0 /HPF (0-2) Urine WBC 1-4 /HPF (0-4) Urine Squamous Epithelial Cells Few /LPF Urine Bacteria Few /HPF (0-FEW) Urine Mucus Slight /LPF White Blood Count 3.0 x10^3/uL (4.0-11.0) Red Blood Count 4.33 x10^6/uL (3.50-5.40) Hemoglobin 13.2 g/dL (12.0-15.5) Hematocrit 39.8 % (36.0-47.0) Mean Corpuscular Volume 92 fL (79-100) Mean Corpuscular Hemoglobin 31 pg (25-35) Mean Corpuscular Hemoglobin Concent 33 g/dL (31-37) Red Cell Distribution Width 13.0 % (11.5-14.5) Platelet Count 162 x10^3/uL (140-400) Neutrophils (%) (Auto) 66 % (31-73) Lymphocytes (%) (Auto) 21 % (24-48) Monocytes (%) (Auto) 10 % (0-9) Eosinophils (%) (Auto) 2 % (0-3) Basophils (%) (Auto) 1 % (0-3) Neutrophils # (Auto) 2.0 x10^3uL (1.8-7.7) Lymphocytes # (Auto) 0.6 x10^3/uL (1.0-4.8) Monocytes # (Auto) 0.3 x10^3/uL (0.0-1.1) Eosinophils # (Auto) 0.1 x10^3/uL (0.0-0.7) Basophils # (Auto) 0.0 x10^3/uL (0.0-0.2) Reticulocyte Count (auto) 1.2 % (0.5-2.5) Sodium Level 140 mmol/L (136-145) Potassium Level 3.5 mmol/L (3.5-5.1) Chloride Level 105 mmol/L (98-107) Carbon Dioxide Level 27 mmol/L (21-32) Anion Gap 8 (6-14) Blood Urea Nitrogen 6 mg/dL (7-20) Creatinine 0.8 mg/dL (0.6-1.0) Estimated GFR (Cockcroft-Gault) 90.5 BUN/Creatinine Ratio 8 (6-20) Glucose Level 85 mg/dL (70-99) Calcium Level 7.9 mg/dL (8.5-10.1) Total Bilirubin 0.7 mg/dL (0.2-1.0) Aspartate Amino Transf (AST/SGOT) 157 U/L (15-37) Alanine Aminotransferase (ALT/SGPT) 243 U/L (14-59) Alkaline Phosphatase 79 U/L (46-116) Total Protein 7.2 g/dL (6.4-8.2) Albumin 3.6 g/dL (3.4-5.0) Albumin/Globulin Ratio 1.0 (1.0-1.7) Hepatitis A IgM Antibody Negative (Negative) Hepatitis B Surface Antigen Negative (Negative) Hepatitis B Core IgM Antibody Negative (Negative) Hepatitis C Antibody <0.1 s/co ratio Test 05/12/17 09:40 05/13/17 06:25 Urine Opiates Screen Pos (NEG) Urine Methadone Screen Neg (NEG) Urine Barbiturates Neg (NEG) Urine Phencyclidine Screen Neg (NEG) Urine Amphetamine/Methamphetamine Neg (NEG) Urine Benzodiazepines Screen Neg (NEG) Urine Cocaine Screen Neg (NEG) Urine Cannabinoids Screen Neg (NEG) Urine Ethyl Alcohol Neg (NEG) White Blood Count 2.6 x10^3/uL (4.0-11.0) Red Blood Count 4.03 x10^6/uL (3.50-5.40) Hemoglobin 12.6 g/dL (12.0-15.5) Hematocrit 36.6 % (36.0-47.0) Mean Corpuscular Volume 91 fL (79-100) Mean Corpuscular Hemoglobin 31 pg (25-35) Mean Corpuscular Hemoglobin Concent 35 g/dL (31-37) Red Cell Distribution Width 12.9 % (11.5-14.5) Platelet Count 149 x10^3/uL (140-400) Neutrophils (%) (Auto) 37 % (31-73) Lymphocytes (%) (Auto) 52 % (24-48) Monocytes (%) (Auto) 9 % (0-9) Eosinophils (%) (Auto) 1 % (0-3) Basophils (%) (Auto) 1 % (0-3) Neutrophils # (Auto) 1.0 x10^3uL (1.8-7.7) Lymphocytes # (Auto) 1.3 x10^3/uL (1.0-4.8) Monocytes # (Auto) 0.2 x10^3/uL (0.0-1.1) Eosinophils # (Auto) 0.0 x10^3/uL (0.0-0.7) Basophils # (Auto) 0.0 x10^3/uL (0.0-0.2) Sodium Level 142 mmol/L (136-145) Potassium Level 3.8 mmol/L (3.5-5.1) Chloride Level 106 mmol/L (98-107) Carbon Dioxide Level 26 mmol/L (21-32) Anion Gap 10 (6-14) Blood Urea Nitrogen 6 mg/dL (7-20) Creatinine 0.8 mg/dL (0.6-1.0) Estimated GFR (Cockcroft-Gault) 90.5 BUN/Creatinine Ratio 8 (6-20) Glucose Level 87 mg/dL (70-99) Calcium Level 8.4 mg/dL (8.5-10.1) Total Bilirubin 0.3 mg/dL (0.2-1.0) Aspartate Amino Transf (AST/SGOT) 63 U/L (15-37) Alanine Aminotransferase (ALT/SGPT) 144 U/L (14-59) Alkaline Phosphatase 70 U/L (46-116) Total Protein 6.7 g/dL (6.4-8.2) Albumin 3.3 g/dL (3.4-5.0) Albumin/Globulin Ratio 1.0 (1.0-1.7) Laboratory Tests Test 05/13/17 06:25 White Blood Count 2.6 x10^3/uL (4.0-11.0) Red Blood Count 4.03 x10^6/uL (3.50-5.40) Hemoglobin 12.6 g/dL (12.0-15.5) Hematocrit 36.6 % (36.0-47.0) Mean Corpuscular Volume 91 fL (79-100) Mean Corpuscular Hemoglobin 31 pg (25-35) Mean Corpuscular Hemoglobin Concent 35 g/dL (31-37) Red Cell Distribution Width 12.9 % (11.5-14.5) Platelet Count 149 x10^3/uL (140-400) Neutrophils (%) (Auto) 37 % (31-73) Lymphocytes (%) (Auto) 52 % (24-48) Monocytes (%) (Auto) 9 % (0-9) Eosinophils (%) (Auto) 1 % (0-3) Basophils (%) (Auto) 1 % (0-3) Neutrophils # (Auto) 1.0 x10^3uL (1.8-7.7) Lymphocytes # (Auto) 1.3 x10^3/uL (1.0-4.8) Monocytes # (Auto) 0.2 x10^3/uL (0.0-1.1) Eosinophils # (Auto) 0.0 x10^3/uL (0.0-0.7) Basophils # (Auto) 0.0 x10^3/uL (0.0-0.2) Sodium Level 142 mmol/L (136-145) Potassium Level 3.8 mmol/L (3.5-5.1) Chloride Level 106 mmol/L (98-107) Carbon Dioxide Level 26 mmol/L (21-32) Anion Gap 10 (6-14) Blood Urea Nitrogen 6 mg/dL (7-20) Creatinine 0.8 mg/dL (0.6-1.0) Estimated GFR (Cockcroft-Gault) 90.5 BUN/Creatinine Ratio 8 (6-20) Glucose Level 87 mg/dL (70-99) Calcium Level 8.4 mg/dL (8.5-10.1) Total Bilirubin 0.3 mg/dL (0.2-1.0) Aspartate Amino Transf (AST/SGOT) 63 U/L (15-37) Alanine Aminotransferase (ALT/SGPT) 144 U/L (14-59) Alkaline Phosphatase 70 U/L (46-116) Total Protein 6.7 g/dL (6.4-8.2) Albumin 3.3 g/dL (3.4-5.0) Albumin/Globulin Ratio 1.0 (1.0-1.7) LFT/s better. Further drop in neutrophil count. Medications Current Medications Morphine Sulfate 4 mg PRN Q15MIN PRN IV/SQ PAIN GREATER THAN 3/10 Last administered on 05/11/17 09:34; Start 05/11/17 at 07:30; Stop 05/11/17 at 15:49 ; Status DC Ondansetron HCl (Zofran) 4 mg 1X ONCE IV Last administered on 05/11/17 07:31 ; Start 05/11/17 at 07:30; Stop 05/11/17 at 07:31; Status DC Morphine Sulfate 4 mg STK-MED ONCE .ROUTE ; Start 05/11/17 at 07:20; Stop at 07:21; Status DC Sodium Chloride 1,000 ml @ 1,000 mls/hr 1X ONCE IV Last administered on 07:32; Start 05/11/17 at 07:30; Stop 05/11/17 at 08:29; Status DC Iohexol (Omnipaque 300 Mg/ml) 75 ml 1X ONCE IV Last administered on 05/11/17 07:55; Start 05/11/17 at 07:30; Stop 05/11/17 at 07:35; Status DC Info (Do NOT chart on this entry -- for MONITORING) 1 each PRN DAILY PRN MC SEE COMMENTS; Start 05/11/17 at 07:45; Stop 05/13/17 at 07:44; Status DC Ondansetron HCl (Zofran) 4 mg PRN Q8HRS PRN IV NAUSEA/VOMITING; Start 05/11/17 at 13:00; Stop 05/11/17 at 15:49; Status DC Morphine Sulfate 2 mg PRN Q2HR PRN IV PAIN Last administered on 05/11/17 17:15 ; Start 05/11/17 at 13:00; Stop 05/12/17 at 08:12; Status DC Sodium Chloride 1,000 ml @ 100 mls/hr Q10H IV Last administered on 05/11/17 17:03; Start 05/11/17 at 12:49; Stop 05/12/17 at 12:48; Status DC Ondansetron HCl (Zofran) 4 mg PRN Q6HRS PRN IV NAUSEA/VOMITING Last administered on 05/13/17 05:46; Start 05/11/17 at 15:48 Oxycodone/ Acetaminophen (Percocet 5/325) 1 tab PRN Q4HRS PRN PO PAIN; Start at 16:00; Stop 05/12/17 at 14:04; Status DC Potassium Chloride 100 ml @ 100 mls/hr Q1H IV Last administered on 05/11/17 19:47; Start 05/11/17 at 17:00; Stop 05/11/17 at 18:59; Status DC Ondansetron HCl (Zofran) 4 mg PRN Q6HRS PRN IV NAUSEA/VOMITING; Start 05/12/17 at 07:45; Stop 05/13/17 at 07:44; Status DC Fentanyl Citrate (Fentanyl 2ml Vial) 25 mcg PRN Q5MIN PRN IV MILD PAIN; Start 05/12/17 at 07:45; Stop 05/12/17 at 14:04; Status DC Fentanyl Citrate (Fentanyl 2ml Vial) 50 mcg PRN Q5MIN PRN IV sevre PAIN; Start 05/12/17 at 07:45; Stop 05/13/17 at 07:44; Status DC Morphine Sulfate 1 mg PRN Q10MIN PRN IV SEVERE PAIN; Start 05/12/17 at 07:45; Stop 05/12/17 at 14:04; Status DC Ringer's Solution 1,000 ml @ 30 mls/hr Q24H IV ; Start 05/12/17 at 07:45; Stop 05/12/17 at 19:44; Status DC Lidocaine HCl 2 ml PRN 1X PRN ID PRIOR TO IV START; Start 05/12/17 at 07:45; Stop 05/13/17 at 07:44; Status DC Hydromorphone HCl (Dilaudid) 0.5 mg PRN Q10MIN PRN IV SEV PAIN, Second choice; Start 05/12/17 at 07:45; Stop 05/12/17 at 14:04; Status DC Prochlorperazine Edisylate (Compazine) 5 mg PACU PRN PRN IV NAUSEA, MRX1; Start 05/12/17 at 07:45; Stop 05/13/17 at 07:44; Status DC Heparin Sodium (Porcine) 1000 unit/Sodium Chloride 1,001 ml @ 1,001 mls/hr 1X PERIOP ONCE IRR ; Start 05/12/17 at 08:00; Stop 05/12/17 at 08:59; Status DC Morphine Sulfate 2 mg PRN Q2HR PRN IV PAIN Last administered on 05/12/17 08:17 ; Start 05/12/17 at 08:15; Stop 05/12/17 at 14:04; Status DC Famotidine (Pepcid) 20 mg BID IVP Last administered on 05/13/17 08:20; Start 05/12/17 at 10:00 Cefazolin Sodium/ Dextrose 50 ml @ 100 mls/hr 1X PREOP IV ; Start 05/12/17 at 10:30; Stop 05/13/17 at 18:00 Doxycycline Hyclate 100 mg/ Dextrose 100 ml @ 50 mls/hr Q12HR IV Last administered on 05/12/17 16:50; Start 05/12/17 at 14:00; Stop 05/12/17 at 16:55 ; Status DC Fentanyl Citrate (Fentanyl 2ml Vial) 25 mcg Q2H PRN IV mod pain; Start at 15:45; Stop 05/13/17 at 15:44 Morphine Sulfate 4 mg 1X ONCE IV Last administered on 05/12/17 16:08; Start 05/12/17 at 16:00; Stop 05/12/17 at 16:02; Status DC Doxycycline Hyclate 100 mg/ Dextrose 100 ml @ 50 mls/hr Q12HR IV Last administered on 05/13/17 05:46; Start 05/13/17 at 06:00; Stop 05/13/17 at 09:56 ; Status DC Morphine Sulfate 2 mg PRN Q2HR PRN IV PAIN Last administered on 05/13/17 08:20 ; Start 05/12/17 at 19:00 Active Scripts Active Reported Oxycodone Hcl 5 Mg Capsule 5 Mg PO PRN Vitals/I & O Vital Sign - Last 24 Hours 05/12/17 05/12/17 05/12/17 05/12/17 11:14 15:14 16:08 16:08 Temp 98.2 98.1 98.2 98.1 Pulse 53 55 58 Resp 18 20 20 19 B/P (MAP) 100/68 (79) 107/61 (76) 104/66 (79) Pulse Ox 97 96 99 O2 Delivery Room Air Room Air Room Air Room Air 05/12/17 05/12/17 05/12/17 05/12/17 16:25 17:04 19:00 20:00 Temp 98.4 98.4 Pulse 50 Resp 18 B/P (MAP) 108/66 (80) 102/70 (81) Pulse Ox 97 O2 Delivery Room Air Room Air Room Air 05/12/17 05/12/17 05/12/17 05/13/17 20:44 23:00 23:23 05:51 Temp 97.9 97.9 Pulse 53 Resp 18 B/P (MAP) 108/52 (70) Pulse Ox 97 97 97 97 O2 Delivery Room Air Room Air Room Air Room Air 05/13/17 05/13/17 05/13/17 05/13/17 06:25 07:00 08:00 08:20 Temp 97.9 97.9 Pulse 53 Resp 18 16 B/P (MAP) 119/75 (90) Pulse Ox 97 99 O2 Delivery Room Air Room Air Room Air Intake and Output 05/12/17 05/12/17 05/13/17 15:00 23:00 07:00 Intake Total 950 ml 100 ml Balance 950 ml 100 ml Problem List Problems Medical Problems: (1) Abdominal pain of unknown etiology Status: Acute Assessment Cause of illness remains uncertain, but I would favor infectious cause. Patient and family want to r/o APD. Plan of Care: Continue current Tx, Mgmt Plan of Care Note EGD today. LORRAINE ROWLAND MD May 13, 2017 10:26
[2017-05-13] MEDS ORDERED: HEPARIN 1,000 UNIT in IV NORMAL SALINE 1,000 ML for SURG PERIOP IRR ONE (10:30)
[2017-05-13] MEDS ORDERED: LIDOCAINE 2% PF Vial for OR 5 ML VIAL. ONE (10:35)
[2017-05-13] MEDS ORDERED: PROPOFOL 20 ML IV ONE (10:35)
--- NOTE | 2017-05-13 10:57 | PDOC4 ---
PROCEDURE Procedure EGD Indication: Upper abdominal pain, previous N and V; r/p APD. Meds: per anesthesia Findings: E--slightly irregular SQ junction suggestive of some degree of GERD. G--focal non-specific erythema, prepyloric antrum. D--Normal to second portion. Lona. well. IMP: Mild GERD; doubtful this explains all her issues, though may contribute to upper abdominal pain. Non-specific prepyloric erythema. NO ULCER. REC: continue iv h2ra as now; could go to po PPI when taking po. Await pending studies. Would favor completing course of doxycycline. If can eat and pain controlled enough, have no objections to going home. Thanks. LORRAINE ROWLAND MD May 13, 2017 10:57
[2017-05-13] MEDS ORDERED: BISACODYL 10 MG SUPP.RECT. ONE (11:10)
[2017-05-13] MEDS ORDERED: IOHEXOL 300 MG/ML 50 ML VIAL. ONE ×2 (11:10→11:12)
[2017-05-13] MEDS ORDERED: SURGICEL HEMOSTAT 2X3 EACH. ONE (11:10)
[2017-05-13] MEDS ORDERED: BUPIVAC MPF-EPI 0.5%-1:200000 30 ML VIAL. ONE (11:10)
[2017-05-13] MEDS: IV RINGERS,LACTATED 1000ML 1,000 ML IV SCH (11:45)
[2017-05-13 15:00] VITALS: BP 98/67
[2017-05-13] MEDS ORDERED: POLYETHYLENE GLYCOL 3350 17 GM PACKET. PO ONE (17:30)
[2017-05-13] MEDS: HYDROcodone/APAP 5/325MG 1 TAB TABLET PO PRN (18:27)
[2017-05-13 19:38] VITALS: BP 109/74
[2017-05-13] MEDS ORDERED: PROCHLORPERAZINE 5 MG TABLET. PO PRN (21:00)
[2017-05-13 23:19] VITALS: BP 108/79
[2017-05-14] MEDS: IV RINGERS,LACTATED 1000ML 1,000 ML IV SCH (01:05)
[2017-05-14 07:00] VITALS: BP 102/68
[2017-05-14 07:51] LABS: CALCIUM 8.8 mg/dL (8.5-10.1); CREATININE 0.8 mg/dL (0.6-1.0); GFR 90.5; POTASSIUM 3.8 mmol/L (3.5-5.1)
[2017-05-14 07:57] LABS: ALBUMIN 3.6 g/dL (3.4-5.0); TOTAL BILIRUBIN 0.3 mg/dL (0.2-1.0); TOTAL PROTEIN 7.2 g/dL (6.4-8.2)
[2017-05-14 08:02] LABS: BASO % 1 % (0-3); EOS % 1 % (0-3); HEMOGLOBIN 13.3 g/dL (12.0-15.5); LYMPH # 1.4 x10^3/uL (1.0-4.8); LYMPH % 44 % (24-48); MEAN CORPUSCULAR HEMOGLOBIN 31 pg (25-35); MEAN CORPUSCULAR HGB CONC 33 g/dL (31-37); MEAN CORPUSCULAR VOLUME 92 fL (79-100); MONO % 9 % (0-9); NEUT % 45 % (31-73); PLATELET COUNT 171 x10^3/uL (140-400); RED BLOOD COUNT 4.36 x10^6/uL (3.50-5.40); RED CELL DISTRIBUTION WIDTH 12.9 % (11.5-14.5); WHITE BLOOD COUNT 3.1 x10^3/uL (4.0-11.0)
[2017-05-14] MEDS: HYDROcodone/APAP 5/325MG 1 TAB TABLET PO PRN (09:18)
[2017-05-14] MEDS: FAMOTIDINE 20 MG/2 ML VIAL IVP SCH (09:18)
--- NOTE | 2017-05-14 10:24 | PDOC ---
Subjective: Subjective: 04/07 pain, worse after eating (fruit snacks w/ pain pill), nausea. No BM. Would like to go home, not sure feels well enough. Mom asks about celiac disease. Objective: Objective: Per RN - 03/08 pain this morning, mom/pt anxious to go home. D/w Dr. Carver - unlikely tick borne illness so no benefit from doxycycline. D/w Dr. Marrero yesterday. Tmax 99. Yesterday declined repeat CT w/ oral contrast. Vital Signs: Vital Signs Date Time Temp Pulse Resp B/P (MAP) Pulse Ox O2 Delivery O2 Flow Rate FiO2 05/14/17 09:18 Room Air 05/14/17 07:00 99.0 47 18 102/68 (79) 98 99.0 05/13/17 11:00 2 Labs: Laboratory Tests Test 05/14/17 07:38 White Blood Count 3.1 x10^3/uL Red Blood Count 4.36 x10^6/uL Hemoglobin 13.3 g/dL Hematocrit 40.0 % Mean Corpuscular Volume 92 fL Mean Corpuscular Hemoglobin 31 pg Mean Corpuscular Hemoglobin Concent 33 g/dL Red Cell Distribution Width 12.9 % Platelet Count 171 x10^3/uL Neutrophils (%) (Auto) 45 % Lymphocytes (%) (Auto) 44 % Monocytes (%) (Auto) 9 % Eosinophils (%) (Auto) 1 % Basophils (%) (Auto) 1 % Neutrophils # (Auto) 1.4 x10^3uL Lymphocytes # (Auto) 1.4 x10^3/uL Monocytes # (Auto) 0.3 x10^3/uL Eosinophils # (Auto) 0.0 x10^3/uL Basophils # (Auto) 0.0 x10^3/uL Sodium Level 141 mmol/L Potassium Level 3.8 mmol/L Chloride Level 102 mmol/L Carbon Dioxide Level 29 mmol/L Anion Gap 10 Blood Urea Nitrogen 7 mg/dL Creatinine 0.8 mg/dL Estimated GFR (Cockcroft-Gault) 90.5 BUN/Creatinine Ratio 9 Glucose Level 90 mg/dL Calcium Level 8.8 mg/dL Total Bilirubin 0.3 mg/dL Aspartate Amino Transf (AST/SGOT) 37 U/L Alanine Aminotransferase (ALT/SGPT) 112 U/L Alkaline Phosphatase 71 U/L Total Protein 7.2 g/dL Albumin 3.6 g/dL Albumin/Globulin Ratio 1.0 Imaging: CT - periportal edema US - contracted gallbladder, no cholelithiasis or hepatomegaly HIDA - no cholecystitis EGD - mild GERD, non-specific pre-pyloric erythema PE: GEN: NAD LUNGS: clear HEART: RRR ABD: BS+, epigastric, BUQ, and periumbilical tenderness NEURO/PSYCH: A & O 3 A/P: Abd pain Nausea Abnormal LFTs - improved Leukopenia - improved -- Difficult situation w/ ongoing symptoms. Discussed stooping IV Pepcid to change to PO PPI; she prefers to keep same meds for now w/ concerns for nausea. Discussed low suspicion for celiac disease; normal duodenum on EGD, also apparently had previous EGD elsewhere to specifically rule this out. Await discharge plans - okay per GI w/ follow-up at home in [place]. RAHUL KING May 14, 2017 10:24
[2017-05-14 11:00] VITALS: BP 105/74
--- NOTE | 2017-05-14 11:42 | PDOC ---
Infectious Disease Note Subjective Subjective Still some abd pain this am. No increase vaginal bleed or additional discharge Has some nausea but also a little hungry ROS ROS GEN: Denies fevers, chills, sweats HEENT: Denies blurred vision, sore throat CV: Denies chest pain RESP: Denies shortness of air, cough GI: Denies n/v/d NEURO: Denies confusion, dizziness MSK: Denies weakness, joint pain/swelling Vital Sign Vital Signs Vital Signs Date Time Temp Pulse Resp B/P (MAP) Pulse Ox O2 Delivery O2 Flow Rate FiO2 05/14/17 10:24 Room Air 05/14/17 07:00 99.0 47 18 102/68 (79) 98 99.0 05/13/17 11:00 2 Physical Exam PHYSICAL EXAM GENERAL: NAD, Alert. Looks better HEENT: PERRL, OC/OP- clear NECK: Supple, no JVD, no LN LUNGS: Clear HEART: S1S2, no gallop, no murmur ABD: Soft, ND, no organomegaly, no rebound. Still some mild periumbilical pain. no guard EXT: No edema, no cyanosis SUMMER NANNY: Alert, 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, no focal neurologic deficit SKIN: No rash IV: ok Labs Lab Laboratory Tests Test 05/14/17 07:38 White Blood Count 3.1 x10^3/uL (4.0-11.0) Red Blood Count 4.36 x10^6/uL (3.50-5.40) Hemoglobin 13.3 g/dL (12.0-15.5) Hematocrit 40.0 % (36.0-47.0) Mean Corpuscular Volume 92 fL (79-100) Mean Corpuscular Hemoglobin 31 pg (25-35) Mean Corpuscular Hemoglobin Concent 33 g/dL (31-37) Red Cell Distribution Width 12.9 % (11.5-14.5) Platelet Count 171 x10^3/uL (140-400) Neutrophils (%) (Auto) 45 % (31-73) Lymphocytes (%) (Auto) 44 % (24-48) Monocytes (%) (Auto) 9 % (0-9) Eosinophils (%) (Auto) 1 % (0-3) Basophils (%) (Auto) 1 % (0-3) Neutrophils # (Auto) 1.4 x10^3uL (1.8-7.7) Lymphocytes # (Auto) 1.4 x10^3/uL (1.0-4.8) Monocytes # (Auto) 0.3 x10^3/uL (0.0-1.1) Eosinophils # (Auto) 0.0 x10^3/uL (0.0-0.7) Basophils # (Auto) 0.0 x10^3/uL (0.0-0.2) Sodium Level 141 mmol/L (136-145) Potassium Level 3.8 mmol/L (3.5-5.1) Chloride Level 102 mmol/L (98-107) Carbon Dioxide Level 29 mmol/L (21-32) Anion Gap 10 (6-14) Blood Urea Nitrogen 7 mg/dL (7-20) Creatinine 0.8 mg/dL (0.6-1.0) Estimated GFR (Cockcroft-Gault) 90.5 BUN/Creatinine Ratio 9 (6-20) Glucose Level 90 mg/dL (70-99) Calcium Level 8.8 mg/dL (8.5-10.1) Total Bilirubin 0.3 mg/dL (0.2-1.0) Aspartate Amino Transf (AST/SGOT) 37 U/L (15-37) Alanine Aminotransferase (ALT/SGPT) 112 U/L (14-59) Alkaline Phosphatase 71 U/L (46-116) Total Protein 7.2 g/dL (6.4-8.2) Albumin 3.6 g/dL (3.4-5.0) Albumin/Globulin Ratio 1.0 (1.0-1.7) Objective Assessment Abdominal pain - periumbilical. Denies abnormal vaginal discharge. EGD without significant findings Leukocytosis - now leukopenia. No Tick and increasing lymphocytes - now improving Transaminitis - better Nausea ? - hunger and pain meds. H/o ovarian cyst - now menstrating Plan Plan of Care Still uncertain etiology. ? viral - could be autoimmune amongst others. Again doubt tick illness. d/w them that a viral process should clear in a few days. Encouraged po intake and avoid pain meds if possible as they may contribute to nausea. Is also c/o a little itch which may be pain meds. If process continues will need further work-up - ie CT with oral contrast further labs. Recommended trying to not look at cell phone while travelling as it may make her dizzy or sick They plan to travel to [facility] today D/w Drs. Madison/DAVID Hunter MD May 14, 2017 11:42
[2017-05-14] MEDS ORDERED: PROC5TAB14 PO (12:33)
[2017-05-14] MEDS ORDERED: BISA-42 PO (12:33)
[2017-05-14] MEDS ORDERED: PANT20TA2 PO (12:33)
[2017-05-14] MEDS ORDERED: HYDR-971 PO (12:34)
--- NOTE | 2017-05-16 21:22 | DS ---
DATE OF DISCHARGE: 05/14/2017 CHIEF COMPLAINT: Intractable abdominal pain. HOSPITAL COURSE: The patient is a 21-year-old woman with history of abdominal pain who presented to the Emergency Room with severe upper abdominal/epigastric pain. Although location was somewhat suspicious for cholecystitis with stones noted on CT but no other abnormalities in the area, surgical consult was obtained as well as GI. This was not felt to be a surgical case. She, however, was taken to EGD to rule out gastric or esophageal etiology. The findings were essentially within normal limits. With the patient being able to tolerate food and no further vomiting, the patient was discharged to home. DISCHARGE PHYSICAL EXAMINATION: VITAL SIGNS: Show blood pressure of 119/75, heart rate of 53, respiratory rate at 16. She is afebrile. GENERAL: This is a slim 21-year-old woman, alert and oriented, in no acute distress. LUNGS: Clear. HEART: Has regular rate and rhythm. ABDOMEN: Has positive bowel sounds, minimal tenderness to palpation in the epigastric area. EXTREMITIES: Show no edema. DISCHARGE DIAGNOSIS: Abdominal pain, unclear etiology. DISCHARGE DISPOSITION: To home. DISCHARGE CONDITION: Improved. DISCHARGE MEDICATIONS: Please refer to MAR. DISCHARGE INSTRUCTIONS: The patient will follow up with PCP in the next week. ANTHONY ARGUETA MD DR: IVETTE/nts JOB#: [id number] / [id number] HEIDI
== END 2017-05-14 13:23 | disposition home or self-care (01) | DRG 392 ==
LOC: ER 07:05 → 4 NORTH 12:40 → OBSVTOIN 05-12 09:28
PROVIDERS: ADMIT Internal Medicine; ATTEND Internal Medicine
PROC: 0DJ08ZZ Inspection of Upper Intestinal Tract, Via Natural or Artificial Opening Endoscopic (ICD-10-PCS; principal; 2017-05-13 10:30)
DX: K21.9 Gastro-esophageal reflux disease without esophagitis (principal); A77.40 Ehrlichiosis, unspecified; K75.9 Inflammatory liver disease, unspecified; I47.1 Supraventricular tachycardia; D72.819 Decreased white blood cell count, unspecified; L53.9 Erythematous condition, unspecified; E87.6 Hypokalemia; Z80.9 Family history of malignant neoplasm, unspecified; Z82.0 Family history of epilepsy and other diseases of the nervous system; Z82.49 Family history of ischemic heart disease and other diseases of the circulatory system; Z83.79 Family history of other diseases of the digestive system; Z83.3 Family history of diabetes mellitus
CPT/HCPCS: 36415; 74177; 76705; 78226; 80053; 80074; 80076; 80307; 81001; 83690; 84703; 85025; 85045; 86644; 86645; 86663; 86664; 96361; 96372; 96374; A9537; G0378; G0379; J0690; J2270; J2405; J2704; J3480; J3490; J7030; J7120; Q0164; Q9967; S0028; 99285-25; G0479; J2001